=== PATIENT | male | born 1995 | race Caucasian/White ===

== ENCOUNTER 2016-03-19 12:15 | Emergency (ER) | payer OTHER, MEDICAID ==
[~2016-03-19] VITALS: Ht 176.5 cm; Wt 78.2 kg
[~2016-03-19 12:15] MED LIST: BENZ1TAB7 PO; FLUV150C2 PO; GABA-502 PO; GUAN1TAB PO; GUAN3TAB2 PO; HALO1TAB PO; KLO1T PO; TRAZ-115 PO
[2016-03-19 12:21] VITALS: BP 115/70; PULSE 99; RESP 16; O2SAT 93
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
[2016-03-19] MEDS ORDERED: diphenhydrAMINE 50 mg Capsule PO ONE (13:40)
[2016-03-19] MEDS ORDERED: diphenhydrAMINE 25 mg Capsule PO ONE (15:10)
[2016-03-19] MEDS ORDERED: HAL5 PO (17:14)
[2016-03-19 17:31] VITALS: BP 119/69; PULSE 89; RESP 16; O2SAT 98
== END 2016-03-19 17:31 | disposition home or self-care (01) ==
LOC: SED 12:15
DX: F91.8 Other conduct disorders (principal); R62.50 Unspecified lack of expected normal physiological development in childhood; F84.0 Autistic disorder; R45.1 Restlessness and agitation

== ENCOUNTER 2016-03-25 19:08 | Emergency (ER) | payer OTHER, MEDICAID ==
[~2016-03-25 19:08] MED LIST changes: +HAL5 PO
[2016-03-25] MEDS ORDERED: PARO20TA5 PO (19:19)
[2016-03-25] MEDS ORDERED: KLO2T PO (19:19)
[2016-03-25] MEDS ORDERED: Haloperidol 5 mg/mL Inj IM ONE (19:30)
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
[2016-03-25] MEDS ORDERED: oxyCODONE-Acetamin 10-325 mg Tablet PO ONE (19:35)
[2016-03-25 19:40] VITALS: BP 129/85; PULSE 94; RESP 18
[2016-03-25] MEDS ORDERED: LORazepam 2 mg Tablet PO ONE (19:55)
[2016-03-25] MEDS ORDERED: DIPH25CA6 PO (20:26)
[2016-03-25] MEDS ORDERED: NYST1000 PO (20:26)
[2016-03-25] MEDS ORDERED: TRAZ-118 PO (20:26)
[2016-03-25] MEDS ORDERED: LORA10CA PO (20:26)
[2016-03-25] MEDS ORDERED: MELA5TAB14 PO (20:26)
[2016-03-25] MEDS ORDERED: POLY17PO6 PO (20:26)
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
[2016-03-25] MEDS ORDERED: IBUP800T28 PO (22:07)
[2016-03-25 22:31] VITALS: BP 92/43; PULSE 83; RESP 16; O2SAT 97
== END 2016-03-25 22:33 | disposition home or self-care (01) ==
LOC: SED 19:08
DX: S00.83XA Contusion of other part of head, initial encounter (principal); Y04.0XXA Assault by unarmed brawl or fight, initial encounter; Y93.89 Activity, other specified; Y92.9 Unspecified place or not applicable; Y99.8 Other external cause status; F43.22 Adjustment disorder with anxiety; F84.0 Autistic disorder
CPT/HCPCS: 70486; 96372; 99284; J1630

== ENCOUNTER 2016-03-28 15:49 | Inpatient (IN) | payer OTHER, MEDICAID ==
[~2016-03-28] VITALS: Ht 172.7 cm; Wt 79.4 kg
[~2016-03-28 15:49] MED LIST changes: +DIPH25CA6 PO; -GUAN1TAB PO; -GUAN3TAB2 PO; -HAL5 PO; +IBUP800T28 PO; -KLO1T PO; +KLO2T PO; +LORA10CA PO; +MELA5TAB14 PO; +NYST1000 PO; +PARO20TA5 PO; +POLY17PO6 PO; -TRAZ-115 PO; +TRAZ-118 PO
[2016-03-28 16:31] VITALS: BP 115/70; PULSE 89; RESP 18; O2SAT 97
--- NOTE | 2016-03-28 17:47 | PCM.EDPN ---
ED Note Date of Service Mar 28, 2016 I personally saw this patient through the seclusion room door at approximately 1735. He is awake and alert tearful but conversant requesting a pillow. This was provided. He was placed in seclusion because of his past history with his violent behavior and was becoming quite agitated in the public area. Quinton Hart MD Mar 28, 2016 17:47
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
[2016-03-28] MEDS ORDERED: Haloperidol 5 mg/mL Inj IM ONE (18:40)
[2016-03-28 20:15] LABS: BASOPHILS % (AUTO) 0.4 % (0-3); EOSINOPHILS % (AUTO) 1.9 % (0-5); MONOCYTES % (AUTO) 11.7 % (4-12); Mean Corpuscular Hemoglobin 30.1 pg (27.0-35.0); Mean Corpuscular Volume 87.5 fL (81-100); NEUTROPHILS % (AUTO) 70.1 % (40-74); Platelet Count 196 bil/L (150-400)
[2016-03-29] MEDS ORDERED: Haloperidol 5 mg/mL Inj IM STA (01:12)
[2016-03-29] MEDS ORDERED: Haloperidol 5 mg/mL Inj IM ONE (03:15)
[2016-03-29 06:11] VITALS: BP 101/57; PULSE 81; RESP 14; O2SAT 94
[2016-03-29 10:04] VITALS: BP 123/83; PULSE 67; O2SAT 97
[2016-03-29] MEDS ORDERED: Magnesium Hydroxide 10 mL Oral Concentration PO PRN (12:00)
[2016-03-29] MEDS ORDERED: Alum-Mag Hydrox-Simeth 30 mL Suspension PO PRN (12:00)
[2016-03-29] MEDS ORDERED: Benzocaine-Menthol Lozenge 2/Pkg PO PRN (12:00)
[2016-03-29 12:55] VITALS: BP 112/74; PULSE 66; O2SAT 96
[2016-03-29] MEDS: PARoxetine 20 mg Tablet PO SCH ×2 (17:40→20:56)
[2016-03-29] MEDS: OXcarbazepine 300 mg Tablet PO SCH ×2 (17:45→20:56)
[2016-03-29 18:57] VITALS: BP 112/74; PULSE 66; RESP 14; O2SAT 96
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
--- NOTE | 2016-03-30 02:59 | NUR ---
Nursing Admit Patient arrival to unit at 1900 today with security via wheelchair. Pt is on 72 hour COOPER initiated at 0130 on 03/29/16. Patient is a 11-year-old male with history of intellectual disability, autism spectrum disorder, unspecified depressive disorder, and Tourette's syndrome. Pt unable to give much history of events leading up to this admission. Reported from ED that patient required seclusion and PRN medication to maintain safety for self and others. Reports of aggression towards staff and family. Reported medication change approximately one month earlier which mother reports coincides with increasing agitation by patient. Plan for medication adjustment for irritability with plan for discharge home.
--- NOTE | 2016-03-30 05:02 | NUR ---
Observations 1900 to 0700 Pt arrived on the floor at 19:00 and was not able to partake in the intake process. Pt slowly ate his meal in the Dr. Pt was walked to his room via wheelchair. Pt first appeared asleep at 21:15 and was observed every 15 minutes through the night as directed.
--- NOTE | 2016-03-30 05:37 | NUR ---
nursing, nights, 11-7 s/o- has appeared to sleep after 2114 during q 15 minute assessments. a- no apparent distress. p- monitor behavior/emotional state, quality, times and amount of sleep, use and effect of medication. suzanne
[2016-03-30] MEDS ORDERED: Haloperidol 5 mg/mL Inj ONE (08:25)
[2016-03-30] MEDS ORDERED: Haloperidol 5 mg/mL Inj IM PRN (09:35)
--- NOTE | 2016-03-30 10:18 | PCM.PNPSY ---
Subjective Date of Service Mar 30, 2016 Subjective The patient slept well overnight but became irritated after redirection for running on the unit and eventually required seclusion. The patient was banging so hard on the door that emergency medications were required to prevent injury. On assessment today, the patient mumbled his responses and when asked for clarification and stated, "Aren't you even listening?" Regarding all of the questions including suicidality and homicidality he stated, "I do not know." He was unable to say how long these episodes typically last and instead asked for a pillow. No side effect complaints or other medical issues. Sleep: 8.25 hours. Current Medications Current Medications Amantadine HCl 100 mg BID PO Last administered on 03/29/16 20:56; Admin Dose 100 MG; Start 03/29/16 at 12:00 Clonazepam 1 mg BID PO Last administered on 03/29/16 19:43; Admin Dose 1 MG; Start 03/29/16 at 20:30; Stop 03/29/16 at 20:30; Status DC Clonazepam 1 mg ONCE ONCE PO Last administered on 03/29/16 17:40; Admin Dose 1 MG; Start 03/29/16 at 16:05; Stop 03/29/16 at 16:13; Status DC Clonazepam 1 mg TID PRN PO Last administered on 03/29/16 15:41; Admin Dose 1 MG ; Start 03/29/16 at 12:00 Clonazepam 2 mg BID PO Last administered on 03/30/16 07:29; Admin Dose 2 MG; Start 03/29/16 at 20:30 Diphenhydramine HCl 25 mg ONCE ONCE IM Last administered on 03/28/16 19:55; Admin Dose 25 MG; Start 03/28/16 at 18:40; Stop 03/28/16 at 18:42; Status DC Fluvoxamine Maleate 300 mg DAILY PO Last administered on 03/29/16 17:40; Admin Dose 300 MG; Start 03/29/16 at 16:05 Guanfacine HCl 1 mg BID PO Last administered on 03/29/16 20:56; Admin Dose 1 MG ; Start 03/29/16 at 12:00 Haloperidol 5 mg BID PO Last administered on 03/29/16 20:55; Admin Dose 5 MG; Start 03/29/16 at 16:05 Haloperidol Lactate 5 mg ONCE ONCE IM Last administered on 03/28/16 19:55; Admin Dose 5 MG; Start 03/28/16 at 18:40; Stop 03/28/16 at 18:42; Status DC Haloperidol Lactate 5 mg ONCE STAT IM Last administered on 03/29/16 02:22; Admin Dose 5 MG; Start 03/29/16 at 01:12; Stop 03/29/16 at 01:14; Status DC Haloperidol Lactate 10 mg STAT ONCE IM Last administered on 03/29/16 03:58; Admin Dose 10 MG; Start 03/29/16 at 03:15; Stop 03/29/16 at 03:16; Status DC Haloperidol Lactate 10 mg STK-MED ONCE .ROUTE Last administered on 03/30/16 08: 38; Admin Dose 10 MG; Start 03/30/16 at 08:25; Stop 03/30/16 at 08:27; Status DC Lorazepam 1 mg ONCE ONCE IM Last administered on 03/29/16 02:22; Admin Dose 1 MG; Start 03/29/16 at 01:15; Stop 03/29/16 at 01:16; Status DC Lorazepam 2 mg ONCE ONCE IM Last administered on 03/28/16 19:55; Admin Dose 2 MG; Start 03/28/16 at 18:40; Stop 03/28/16 at 18:42; Status DC Lorazepam 2 mg STK-MED ONCE .ROUTE Last administered on 03/30/16 08:38; Admin Dose 2 MG; Start 03/30/16 at 08:26; Stop 03/30/16 at 08:28; Status DC Melatonin 5 mg HS PO Last administered on 03/29/16 17:52; Admin Dose 5 MG; Start 03/29/16 at 21:00 Oxcarbazepine 300 mg BID PO Last administered on 03/29/16 20:56; Admin Dose 300 MG; Start 03/29/16 at 16:05 Paroxetine HCl 20 mg BID PO Last administered on 03/29/16 20:56; Admin Dose 20 MG; Start 03/29/16 at 16:05 Trazodone HCl 100 mg HS PRN PO Last administered on 03/29/16 20:55; Admin Dose 100 MG; Start 03/29/16 at 16:10 Mental Status Exam Appearance: Disheveled Attitude: Guarded, Uncooperative, Hostile/Threatening Behavior: Other (aggressive) Affect: Blunted, Labile Mood: Irritable Thought Process/Associations: Other (poverty of speech) Speech Production: Paucity Speech Rate: Lags/Latency Speech Articulation: Other (dysarthric) Danger to Self/Suicidal Ideati: None ("I do not know ") Danger to Others: None ("I do not know") Delusions: Other (unable to assess) Hallucinations: Other (unable to assess) Consciousness: Other Orientation: Unable to assess Memory: Untestable Estimate Intellectual Function: Developmentally delayed (by history) Basis for IQ estimate: Word use/vocabulary, Educational history Attention/Concentration & Cogn: Impaired Insight: None Judgement: Poor Result Diagram: 03/28/16170103/28/161701 Mental Health Plan The patient is a 20-year-old male with a history of intellectual disability, autism spectrum disorder, depressive disorder, and Tourette's disorder. He presents with increasing agitation and irritability. The patient was recently started on lithium with haloperidol and his agitation, according to his mother, appears to coincide with the start of this medication. He may be exhibiting a delirium or agitation syndrome associated with a combination of haloperidol and lithium. The patient's mother is his legal guardian and we discussed options to address aggression and agitation in autism spectrum disorder. He is also receiving haloperidol and so starting on amantadine would address potential EPS as well as address impulsivity related to autism. The patient had previously been on guanfacine with good results, and so this was also discussed with the mother who approved of this plan. Today, prior to medications, the patient was initially doing well then became quite irritable in response to redirection. He received IM Haldol and Ativan due to severe agitation. We will need a second opinion medication override. Given his intellectual disabilities, once slightly more stabilized, he should be returned to his caregiver. [place] I Autism spectrum disorder with accompanying intellectual and language impairment. Depressive disorder, unspecified. Tourette's disorder. [place] II Intellectual disability, by history. [place] III Left eye contusion. [place]man IV Unknown. [place] V Global Assessment of Functioning 20-25. Medications Haloperidol 5 mg twice a day Guanfacine 1 mg twice daily Amantadine 100 mg twice daily Clonazepam 2 mg twice daily Clonazepam 1 mg tid prn anxiety or agitation Fluvoxamine 300 mg daily Paroxetine 20 mg twice daily Oxcarbazepine 300 mg twice daily Trazodone 100 mg at bedtime for insomnia Melatonin 5 mg at bedtime Treatments 1. The patient will be continued on his outpatient medications with the addition of haloperidol, quantity seen, and amantadine. [place] will not be restarted. 2. The patient is currently in seclusion and will remain there until able to maintain normative behavior for 1-2 hours. 3. We will need to follow up with outpatient provider regarding current medication changes. 4. We will need to follow up with patient's guardian regarding discharge. Per discussion patient not currently taking oxcarbazepine, will discontinue. 5. Estimated length of stay 1-2 days. Sonu Gilliam MD Mar 30, 2016 10:18
[2016-03-30] MEDS: PARoxetine 20 mg Tablet PO SCH ×2 (10:39→20:17)
--- NOTE | 2016-03-30 11:11 | NUR ---
Nursing Day Shift- Pt. was awake at the start of the day Shift. He was watching TV in the DR. Pt. was polite, childlike, and calm when staff introduced themselves. At 0740 Pt. Stated to staff..."Want to come see a surprise in my room? Come see, follow me." The pt. was animated and giggly. Pt. began running on his toes down the hallway. He was told gently that walking was allowed and running was not. Staff got to the Pt's room, and he said "Look...I turned all the lights on!!" Pt. and staff then walked back down the hallway toward the DR. The Pt. ran up behind a peer. He was again gently reminded to walk. Pt. then approached staff with a smile and stated. "I ran! What are you going to do about it? Staff attempted to redirect the subject, but Pt. continued to ask in an increasingly agitated and threatening tone. He yelled at a peer that was greeting him: "Get the F...away from me you old Bitch!!" Redirection was attempted again, then the option of going to his room to yell or quieting down. Pt. then verbally threatened to harm staff. A ha page was called and the Pt. was placed in seclusion at 0800. Orders were obtained, and a 1:1 was placed with full view of the Pt. The Pt. continued to yell and threaten staff. He gently hit at the window with his open palms and his forehead. PO medications were offered and refused. IM medications were ordered and given with a show of force, and resistance. Pt. began banging his head with force at 0919. A ha Page was called ant the Pt. was moved to restraints at 0925. 1:1 continued at the bedside. Q 15 minute circulation checks performed. See MAR, and restraint and seclusion records. Addendum: 03/30/16 at 1407 by SANJIV NEGRO RN Clarification: IM medications given at 0838. evaluated the Pt. at 0845. At 1045 Pt. agreed to take his scheduled AM medications. One arm was released at that time. Pt drank 300 cc with meds. At 1119 food was offered. The L leg was released. Pt. eat well. He continued to be labile with unprovoked bouts of yelling and threatening toward staff. At 1210 Pt. lashed out at staff, threw his pillow and blanket, urinated on the floor after being offered the urinal, then began banging his arm against the bed. 4 point restraints were reapplied. Pt. continued to swear and threaten staff. He slowly calmed. At 1340 Pt. agreed to maintain calm, nonaggressive behavior. The restraints were removed. Pt's mother visiting and Pt. behaving politely at this time.
--- NOTE | 2016-03-30 17:48 | NUR ---
Bridal Sales Consultant/Counselor: S: "I can do whatever I want to do!" O: Patient slept 8.25 hours last night as per staff. He responded "I don't know" to all questions asked by staff. A: Patient is uncooperative, disheveled, guarded, hostile, threatening, aggressive, blunted affect, labile, irritable, no insight, poor judgment. P: Follow care plan, coordinate with out-patient providers, monitor behavior.
--- NOTE | 2016-03-30 18:46 | NUR ---
[facility] Day Shift Pt unable to maintain behavior throughout most of the shift. Pt displays inappropriate language, volume, and aggressiveness in the dining room before breakfast, at which point was asked to return to his room. Pt complied following show of force/code eller. Pt continues to require near-constant attention to monitor/contain aggressive behavior. Pt appears better able to maintain behavior in the late afternoon/evening. Pt unable to attend community meeting or group activities throughout the shift. Pt given meals in his room. Pt appears to have eaten approx 100% of all meals.
--- NOTE | 2016-03-30 22:03 | NUR ---
NURSING NOTE [id number] Mood= "I'm... ballsy" *laughs* Affect= childlike, blunted Behavior= Pt. has maintained behavioral control for the duration of the shift. He was in open door seclusion at start of shift with his mother visiting him there. After she left, this advertising writer asked the pt. if he could remain behavioral control in his own room and he agreed that he would, so pt. walked with this advertising writer and another RN back to his room. Pt. placed on 1:1 with a sitter outside his room. He spent much of the afternoon pacing, singing and talking to himself in his room. He ate his dinner in the multipurpose room with his grandfather, mother, and sister who all visited with him. After their visit, he happily watched TV for a brief period before asking if he could go back to his room. He was med compliant. At time of writing (22:20) he is resting in bed w/eyes closed. Thought processes= disorganized, unable to clearly answer this advertising writer's questions about auditory and visual hallucinations Addendum: 03/30/16 at 2219 by LISA SR RN PRN Trazodone 100 mg @ HS
[2016-03-31] MEDS: PARoxetine 20 mg Tablet PO SCH (04:58)
--- NOTE | 2016-03-31 05:39 | NUR ---
Pt visited family. Out on unit watching TV some. Asleep at 2100-500. 1:1 observation. Pt observed every 15 minutes as ordered.
--- NOTE | 2016-03-31 05:39 | NUR ---
Nursing Noc Pt pleasant and cooperative this shift. Noted to have visitors this evening (grand parents) and hugging each of them prior to end of visiting time. Pt directable to room or snacks. Not able to participate with group, but was able to maintain behavioral control in [place] while watching TV or having snacks. Continuing to monitor Q15 minutes for safety, mood, behavior, emotional state and sleep times. CP
--- NOTE | 2016-03-31 15:01 | PCM.DIMED ---
Discharge Instructions Date of Service Mar 31, 2016 Dates of Hospitalization Mar 29, 2016 at 11:59 Discharge Diagnosis Discharge Diagnosis [place] I Autism spectrum disorder with accompanying intellectual and language impairment. Depressive disorder, unspecified. Tourette's disorder, by history. [place] II Intellectual disability, by history. [place] III Left eye contusion. [place] IV Unknown. [place] V Global Assessment of Functioning 40. Test Results Laboratory Tests 72 Hours Test 03/28/16 17:02 White Blood Count 6.7th/mm3 (3.8-10.1) Red Blood Count 5.38mil/mm3 (4.40-5.80) Hemoglobin 16.2g/dL (13.8-17.2) Hematocrit 47.1% (41.0-50.0) Mean Corpuscular Volume 87.5fL (81-100) Mean Corpuscular Hemoglobin 30.1pg (27.0-35.0) Mean Corpuscular Hemoglobin Concent 34.4% (32.0-37.0) Red Cell Distribution Width 13.4% (12.3-15.4) Platelet Count 196bil/L (150-400) Neutrophils (%) (Auto) 70.1% (40-74) Lymphocytes (%) (Auto) 15.8% (14-46) Monocytes (%) (Auto) 11.7% (4-12) Eosinophils (%) (Auto) 1.9% (0-5) Basophils (%) (Auto) 0.4% (0-3) Hold Purple Top Tube Received (Received) Hold Blue Top Tube Received (Received) Sodium Level 141mEq/L (134-144) Potassium Level 4.4mEq/L (3.5-5.2) Chloride Level 99mEq/L (97-108) Carbon Dioxide Level 32mmol/L (18-29) Blood Urea Nitrogen 9mg/dL (6-20) Creatinine 0.99mg/dL (0.76-1.27) Estimat Glomerular Filtration Rate 104mL/min (>59) Glucose Level 80mg/dL (60-99) Calcium Level 9.7mg/dL (8.5-10.1) Total Bilirubin 0.2mg/dL (0.0-1.2) Aspartate Amino Transf (AST/SGOT) 35U/L (0-50) Alanine Aminotransferase (ALT/SGPT) 59U/L (0-44) Alkaline Phosphatase 94U/L (25-150) Total Protein 7.0g/dL (6.4-8.4) Albumin 4.4g/dL (3.4-5.0) Thyroid Stimulating Hormone (TSH) 2.950uIU/mL (0.450-4.500) Hold [place] Top Tube Received (Received) Hold [place] Top Tube Received (Received) [place] Level 0.7mEq/L (0.5-1.5) Alcohol, Quantitative < 10mg/dL (0-10) Diet No restrictions Activity No restrictions Patient Instructions Should you have any thoughts of harming yourself or others, please call the crisis line, your provider, 911, or go to the nearest Emergency Department. Do not change or discontinue your medications without discussing with your provider. You have been given a prescription for 14 days supply of your new medication Follow-up plan Provider KASIE Gonzalez on 04/04/16 at 3:00pm [address] [place] [id number] [place] Operator Alondra Keen on 04/12/16 at 1:00pm [address] [place] [id number] Sonu Gilliam MD Mar 31, 2016 15:01
[2016-03-31] MEDS ORDERED: AMN100C PO (15:07)
[2016-03-31] MEDS ORDERED: GUAN1TAB PO (15:07)
[2016-03-31] MEDS ORDERED: KLO1T PO (15:07)
[2016-03-31] MEDS ORDERED: KLO2T PO (15:07)
[2016-03-31] MEDS ORDERED: HAL5 PO (15:07)
--- NOTE | 2016-03-31 17:50 | NUR ---
Emery Grinder/Counselor: S/O: Patient slept 8+ hours last night as per staff. He denies S/I and H/I. He also denies auditory and visual hallucinations. Depression is 0/10 and anxiety is "mild"/10. Out-patient appointments: KASIE Gonzalez, [facility] prescriber, 04/04/16 at 3:00pm and Bill Keen, [facility] clinician, 04/12/16 at 1:00pm. A: Patient is cooperative, disheveled, guarded, poor insight, poor judgment. P: Follow care plan, coordinate with out-patient providers, monitor behavior.
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
--- NOTE | 2016-03-31 19:13 | NUR ---
Nursing Discharge Note: Patient's guardian/mother cooperative with discharge process. Acknowledges understanding of d/c instructions and has a copy with them upon leaving unit at 1905. Belongings accounted for and with patient. Prescriptions faxed to patients pharmacy. Hard copies with parents. Patient denies harmful thoughts and hallucinations at this time. Has had a good appetite. Directable.
== END 2016-03-31 19:05 | disposition home or self-care (01) | DRG 884 ==
LOC: SED 15:49 → OFED 03-29 11:59 → MHC 03-29 15:34
PROVIDERS: ADMIT Psychiatry & Neurology Psychiatry; ATTEND Psychiatry & Neurology Psychiatry
DX: F84.0 Autistic disorder (principal); F79 Unspecified intellectual disabilities; F95.2 Tourette's disorder; F32.9 Major depressive disorder, single episode, unspecified

== ENCOUNTER 2016-06-14 18:17 | Emergency (ER) | payer OTHER, MEDICAID ==
[~2016-06-14] VITALS: Ht 175.3 cm; Wt 76.8 kg
[~2016-06-14 18:17] MED LIST changes: +AMN100C PO; -BENZ1TAB7 PO; -GABA-502 PO; +GUAN1TAB PO; +HAL5 PO; -HALO1TAB PO; +KLO1T PO
[2016-06-14 18:23] VITALS: BP 112/66; PULSE 71; RESP 18; O2SAT 100
[2016-06-14 18:59] LABS: BASOPHILS % (AUTO) 0.3 % (0-3); EOSINOPHILS % (AUTO) 0.3 % (0-5); MONOCYTES % (AUTO) 7.1 % (4-12); Mean Corpuscular Hemoglobin 29.9 pg (27.0-35.0); NEUTROPHILS % (AUTO) 67.9 % (40-74); Platelet Count 206 bil/L (150-400)
[2016-06-14 19:14] VITALS: BP 169/63; PULSE 82; RESP 16; O2SAT 95
[2016-06-14 19:22] LABS: Magnesium 2.3 mg/dL (1.6-2.6)
[2016-06-14] MEDS ORDERED: 0.9% Sodium Chloride 1,000 ML IV ONE (19:30)
[2016-06-14] MEDS ORDERED: Ondansetron 2 mg/mL 2 mL Inj IVPUSH ONE (19:30)
[2016-06-14] MEDS ORDERED: HYDROmorphone 0.5 mg/0.5 mL iSecure Syringe IVPUSH PRN (19:30)
--- NOTE | 2016-06-14 19:32 | ED.REPORT ---
HPI-Abd Pain M Under 40 Date of Service Jun 14, 2016 ED Provider: Jasiel Maria MD Patient is a 20 year old male with a history of autism spectrum disorder with accompanying intellectual and language impairment who presents to the ED from Urgent Care, accompanied by his parents, due to RLQ that began this morning. The physician at Urgent Care was concerned about possible appendicitis. The patient last had a bowel movement this morning and has not been constipated or had diarrhea. His parents deny a fever, nausea, or vomiting. The patient did complain of dysuria earlier today, but urinalysis at Urgent Care was negative. Patient is an poor historian and is able to provide minimal history. Nursing Notes Stated Complaint: RIGHT SIDE PAIN SENT FROM Chief Complaint: Male Abdominal Pain Nursing Notes Reviewed: Yes Allergies: Coded Allergies: No Known Allergies (Verified Allergy, Unknown, 03/25/16) Scheduled Amantadine (Amantadine) 100 Mg Cap 100 MG PO BID Clonazepam (Clonazepam) 2 Mg Tablet 2 MG PO BID Fluvoxamine Maleate ER (Fluvoxamine Maleate ER) 150 Mg Capsule 300 MG PO DAILY Guanfacine (Guanfacine) 1 Mg Tablet 1 MG PO BID Haloperidol (Haloperidol) 5 Mg Tablet 5 MG PO BID Loratadine (Claritin) 10 Mg Capsule 10 MG PO DAILY Melatonin (Melatonin) 5 Mg Tablet 5 MG PO HS Nystatin (Nystatin) 100,000 Unit/1 Ml Oral.susp 100,000 UNIT PO TID Paroxetine (Paroxetine) 20 Mg Tablet 20 MG PO BID Polyethylene Glycol 3350 (Miralax) 17 Gm Powd.pack 17 GM PO DAILY Trazodone (Trazodone) 100 Mg Tablet 100-200 MG PO HS Scheduled PRN Clonazepam (Clonazepam) 1 Mg Tablet 1 MG PO TID PRN PRN For Anxiety or Agitation Ibuprofen (Ibuprofen) 800 Mg Tablet 800 MG PO TID PRN PRN For Pain diphenhydrAMINE HCl (Benadryl) 25 Mg Capsule 50 MG PO BID PRN PRN General Time Seen by MD: 19:11 Chief Complaint Abdominal pain Hx Obtained From: Patient Unable to Obtain Hx: Mental status (limited) Arrived By: Walk-in Sudden in Onset?: No Onset Occurred: 9 - 12 hours ago Symptom Duration: Since onset Location: : RLQ Quality: Painful Pertinent Negative: Pt denies other symptoms Recent Healthcare: Recent doctor visit Similar Sx Previous: No Past Medical History Past Medical History Autism spectrum disorder with accompanying intellectual and language impairment. Depression Tourette's Syndome Detained in June 2015 for agitation Past Surgical History None reported Smoking History Never Smoker Social History Alcohol Use: Denies alcohol use Drug Use: Denies drug use Other Social History: Good social support, Lives with parents, Local resident Ambulatory Status Independent Review of Systems Constitutional: Denies: Chills, Fever GI: Reports: Abdominal pain, Denies: Constipation, Diarrhea, Nausea, Vomiting Male: Reports Dysuria Complete sys rev & neg: except as marked. Physical Exam Initial Vital Signs Vital Signs (First) Date Time Temp Pulse Resp B/P Pulse Ox O2 Delivery O2 Flow Rate FiO2 06/14/16 18:23 37.1 71 18 112/66 100 Room Air Initial VS: Reviewed Skin: Warm, Dry, No cyanosis Neurologic: Alert, Oriented, Nonfocal Psychiatric: Mood/affect normal, Behavior normal, Normal thought content General/Constitutional: Awake, Alert, No acute distress Respiratory / Chest: Breath sounds NL, Breath sounds = bilat, No respiratory distress, No rales, No rhonchi, No wheezing Cardiovascular: Heart rate NL, Regular rhythm, Heart sounds NL, No gallop, No murmurs, No rubs Abdomen: Soft, Non-tender, No guarding, No rebound, No distention Tenderness/Guarding/Rebound: Negative: Rigid to palpation tolerates firm palpation all four quadrants Back: Painless range of motion Head / Eyes: Atraumatic, Normocephalic, PERRL, EOMI ENT: Airway patent Mouth: Positive: Mucous membranes dry (mild) Male Genitourinary: Inspection NL, Penis NL (circumcised), Testes NL (no torsion), Cremasteric reflex NL, Epididymis NL (no signs of epididymitis), No lesions or rash Upper Extremity / MS: Atraumatic, No swelling, Non-tender, No deformity, No edema Lower Extremity / Pelvis / MS: Atraumatic, No swelling, Non-tender, No deformity, No edema Interpretation & Diagnostics Lab Results Interpretation Result Diagram: 06/14/16184906/14/16 185 Test 06/14/16 18:50 White Blood Count 6.8th/mm3 (3.8-10.1) Red Blood Count 5.59mil/mm3 (4.40-5.80) Hemoglobin 16.7g/dL (13.8-17.2) Hematocrit 50.3% (41.0-50.0) Mean Corpuscular Volume 90.0fL (81-100) Mean Corpuscular Hemoglobin 29.9pg (27.0-35.0) Mean Corpuscular Hemoglobin Concent 33.2% (32.0-37.0) Red Cell Distribution Width 13.5% (12.3-15.4) Platelet Count 206bil/L (150-400) Neutrophils (%) (Auto) 67.9% (40-74) Lymphocytes (%) (Auto) 24.3% (14-46) Monocytes (%) (Auto) 7.1% (4-12) Eosinophils (%) (Auto) 0.3% (0-5) Basophils (%) (Auto) 0.3% (0-3) Sodium Level 140mEq/L (134-144) Potassium Level 4.3mEq/L (3.5-5.2) Chloride Level 98mEq/L (97-108) Carbon Dioxide Level 27mmol/L (18-29) Blood Urea Nitrogen 12mg/dL (6-20) Creatinine 0.98mg/dL (0.76-1.27) Estimat Glomerular Filtration Rate 105mL/min (>59) Glucose Level 93mg/dL (60-99) Calcium Level 9.9mg/dL (8.5-10.1) Magnesium Level 2.3mg/dL (1.6-2.6) Total Bilirubin 0.3mg/dL (0.0-1.2) Aspartate Amino Transf (AST/SGOT) 26U/L (0-50) Alanine Aminotransferase (ALT/SGPT) 51U/L (0-44) Alkaline Phosphatase 98U/L (25-150) Total Protein 7.5g/dL (6.4-8.4) Albumin 4.7g/dL (3.4-5.0) Lipase 30U/L (13-60) Hold Page Top Tube Received (Received) CT Abd / Pelvis Interpretation IMPRESSION: 1. No evidence of appendicitis. 2. Moderate left hydroureteronephrosis with a transition point at the ureterovesical junction but no discrete shaowing stone identified. The findings may reflect a stricture or aganglionosis in the setting of a megaureter. 3. Hepatic steatosis. Dictated by: Efra Jimenez M.D. on 06/14/2016 at 21:22 Approved by: Efra Jimenez M.D. on 06/14/2016 at 21:26 Interpretation / Wet Read by: Interpret - Radiologist Re-Eval/Medical Decision Med Decision/Clinical Course Patient is a 20 year old male with a history of autism spectrum disorder with accompanying intellectual and language impairment who presents to the ED from Urgent Care, accompanied by his parents, due to RLQ that began this morning. The physician at Urgent Care was concerned about possible appendicitis. The patient last had a bowel movement this morning and has not been constipated or had diarrhea. His parents deny a fever, nausea, or vomiting. The patient did complain of dysuria earlier today, but urinalysis at Urgent Care was negative. Patient is an poor historian and is able to provide minimal history due to his underlying cognitive impairment. Here in the emergency department he is afebrile with stable vital signs and relatively benign abdominal examination. CBC is unremarkable CMP is unremarkable. Good renal function. Urinalysis at Urgent Care was negative for a UTI. CT scan of the abdomen and pelvis was obtained as below: 1. No evidence of appendicitis. 2. Moderate left hydroureteronephrosis with a transition point at the ureterovesical junction but no discrete shaowing stone identified. The findings may reflect a stricture or aganglionosis in the setting of a megaureter 5. Hepatic steatosis. Serial abdominal examinations remained benign. There is no evidence suggestive of acute surgical intra-abdominal process, small bowel obstruction or peritonitis. Testicular examination revealed no evidence of torsion or epididymitis. There is no evidence of hernia. Positive patient's abdominal pain remains unclear to tell at this time it seems to have completely resolved and imaging/laboratory studies are reassuring. Follow-up and return precautions were reviewed in detail with the patient's parents who verbalize understanding and agreement with the plan. He was discharged home in good condition. Source of Hx: Old records Re-Evaluation/Progress : Time of Eval: 21:45 Patient Status: Condition improved Re-Evaluation/Progress Note: CT scan was negative and the patient appears improved. No acute abnormalities on labs. Patient understands and agrees with the plan to be discharged home. Discharge instructions and follow-up discussed. All questions were addressed. Return to the ED warnings given. Counseled Regarding: Diagnosis, Lab results, Need for follow-up, When/why to return to ED Patient Discharge & Departure Primary Impression: Abdominal pain Abdominal location: right lower quadrant Qualified Code: R10.31 - Right lower quadrant pain Additional Impressions: Right lower quadrant pain Autism disorder Disposition: Home Discharge Condition All VS Reviewed: Yes Condition: Stable Patient Instructions: Acute Abdominal Pain (ED) Additional Instructions: Thank you for seeking care at the emergency room. It is difficult for us to make definitive diagnoses in the ED but we believe that he is experiencing abdominal pain. It is unclear what is causing this abdominal discomfort. Our primary goal today in the ED was to evaluate him for any life-threatening conditions. His evaluation was reassuring. He should follow-up with his primary doctor in the next week. There were some abnormalities of his ureter that were seen on the CT scan of the Abdomen. He should follow-up on this finding with Urology. You should return to the ED immediately if he develop fevers, vomiting, cough, shortness of breath, chest pain, lightheadedness, weakness or any other concerning signs or symptoms. Thank you for letting us partake in his care today. Referrals: Joss Mancuso MD (PCP) Lisa Nguyễn MD Attestation Portions of this note were transcribed by Tammy Sparks. I, Dr. Maria personally performed the history, physical exam and medical decision-making; I reviewed and confirmed the accuracy of the information in the transcribed note. Signed by: Tori Giordano, 06/14/2016 [id number] copies to: Joss Mancuso MD; Lisa Nguyễn MD, Beck O MD Jun 14, 2016 19:32 Tammy Sparks Jun 14, 2016 20:00
--- NOTE | 2016-06-14 21:28 | DRSVH ---
PROCEDURE: CT ABDOMEN AND PELVIS WITH CONTRAST ([id number]) INDICATIONS: Right lower quadrant pain TECHNIQUE: After the administration of oral and intravenous contrast, 5 mm thick sections acquired from the diap hragms to the symphysis. 5 mm thick coronal and sagittal reformats were performed. For radiation do se reduction, the following was used: automated exposure control, adjustment of mA and/or kV accordi ng to patient size. COMPARISON: None. FINDINGS: Image quality: Excellent. ABDOMEN: Lung bases: Lung bases are clear. Heart size is normal. Solid organs: There is hypoattenuation of the liver consistent with fatty infiltration. Biliary syst em is non-dilated. Pancreas enhances normally. No adrenal nodules. There is moderate left hydroure teronephrosis with a transition in the region of the ureterovesicular junction. No obstructing stone visualized. No right hydronephrosis. Peritoneum and bowel: Stomach, small bowel, and colon loops are normal in caliber and wall thickness . The appendix is normal in appearance. No free fluid or air. Nodes and vessels: No retroperitoneal or mesenteric adenopathy. Aorta and inferior vena cava are no rmal in caliber. Miscellaneous: No ventral hernias. PELVIS: Genitourinary: Bladder wall thickness is normal. Miscellaneous: No inguinal hernias or adenopathy. Bones: No suspicious bony lesions. No vertebral body compression fractures. IMPRESSION: 1. No evidence of appendicitis. 2. Moderate left hydroureteronephrosis with a transition point at the ureterovesical junction but no discrete shaowing stone identified. The findings may reflect a stricture or aganglionosis in the se tting of a megaureter. 5. Hepatic steatosis. Dictated by: Efra Jimenez M.D. on 06/14/2016 at 21:22 Approved by: Efra Jimenez M.D. on 06/14/2016 at 21:26
== END 2016-06-14 22:14 | disposition home or self-care (01) ==
LOC: SED 18:17
DX: R10.31 Right lower quadrant pain (principal); F84.0 Autistic disorder
CPT/HCPCS: 36415; 74177; 80053; 83690; 83735; 85025; 96361; 96374; 96375; 99285; J1170; J2405; J7030; Q9967

== ENCOUNTER 2016-07-03 21:09 | Inpatient (IN) | payer OTHER, MEDICAID ==
[~2016-07-03] VITALS: Ht 175.3 cm; Wt 77.3 kg
[2016-07-03 21:16] VITALS: BP 144/99; PULSE 121; RESP 17; O2SAT 97
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
[2016-07-03] MEDS ORDERED: Haloperidol 5 mg/mL Inj IM ONE (21:35)
[2016-07-03 21:47] LABS: BASOPHILS % (AUTO) 0.3 % (0-3); EOSINOPHILS % (AUTO) 0.8 % (0-5); MONOCYTES % (AUTO) 7.2 % (4-12); Mean Corpuscular Hemoglobin 30.5 pg (27.0-35.0); Mean Corpuscular Volume 87.7 fL (81-100); NEUTROPHILS % (AUTO) 74.3 % (40-74); Platelet Count 211 bil/L (150-400)
[2016-07-03 23:10] VITALS: BP 125/66; PULSE 77; RESP 17; O2SAT 97
[2016-07-03 23:30] VITALS: BP 128/81; PULSE 115; RESP 24; O2SAT 97
[2016-07-03] MEDS ORDERED: KLO1T PO (23:52)
[2016-07-03] MEDS ORDERED: FLUV150C2 PO (23:52)
[2016-07-03] MEDS ORDERED: HAL5 PO ×2 (23:52)
[2016-07-04 03:30] VITALS: BP 114/66; PULSE 62; RESP 14; O2SAT 99
[2016-07-04 06:28] VITALS: BP 117/66; PULSE 56; RESP 14; O2SAT 97
[2016-07-04] MEDS ORDERED: LORazepam 2 mg Tablet PO ONE (08:35)
[2016-07-04] MEDS ORDERED: Haloperidol 5 mg/mL Inj IM ONE (08:45)
[2016-07-04] MEDS ORDERED: OLANZapine Zydis ODT 5 mg Tablet PO ONE ×2 (10:35→10:50)
[2016-07-05 03:09] VITALS: BP 95/56; PULSE 48; RESP 14; O2SAT 98
[2016-07-05 06:36] VITALS: BP 131/68; PULSE 69; RESP 15; O2SAT 100
[2016-07-05] MEDS ORDERED: PARoxetine 20 mg Tablet PO ONE (09:55)
[2016-07-05] MEDS ORDERED: chlorproMAZINE 25 mg/mL Inj IM STA (10:19)
[2016-07-05] MEDS ORDERED: chlorproMAZINE 25 mg/mL Inj IM ONE ×2 (15:50→16:00)
[2016-07-05] MEDS ORDERED: chlorproMAZINE 25 mg/mL Inj IM PRN (16:00)
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
[2016-07-05] MEDS ORDERED: TRAZ-118 PO (17:45)
[2016-07-05] MEDS ORDERED: CHOL500050 PO (17:45)
[2016-07-05] MEDS: chlorproMAZINE 25 mg/mL Inj IM PRN (18:26)
--- NOTE | 2016-07-06 03:39 | NUR ---
Nursing Noc Pt in seclusion upon start of shift r/t danger to others and inability to control behavior and aggression. 1:1 sitter in use for safety. Pt remains unable to contract for safety this shift. Pt mentation appears to be equal to approximately a five year old. Appears to follow instruction for reward but quickly regresses to yelling out, swearing, and behaving in a unpredictable manner. Pt calms quickly when stimuli in interaction by staff is stopped. Pt presents calm and resting until interaction with staff. Continuing to monitor 1;1 for safety, monitoring mood, behavior, emotional state and medications. [facility] Addendum: 07/06/16 at 0643 by SERVANDO VO RN 0615 Pt presents more goal directed and less emotionally labile. Up to use bathroom and then back to bed. Medicated with PRN at this time and discussed plan of the day to take shower after breakfast. Pt requested not to take shower because he had one yesterday. Informed pt that he has had hard day and shower will make him much more comfortable to have a great day. Pt accepted conversation without angry outburst or inappropriate behavior.
[2016-07-06] MEDS: Polyethylene Glycol (PEG) 17 Gm Powder PO SCH (08:30)
[2016-07-06 09:35] VITALS: BP 130/67; PULSE 79; RESP 16
--- NOTE | 2016-07-06 09:58 | NUR ---
Nursing: Seclusion. Pt in seclusion at start of shift r/t danger to others and inability to control behavior and aggression. Has 1:1 observation staff with locked door in seclusion are. Pt slept through latter part of night. 0800: On awakening was able eat breakfast. Unable to contract for safety on open unit. 0900: Pt debriefed that he needs to be able to follow directions reliably before being on the open unit. Abner made a "finger" gesture toward keno writer / runner. 924: With security staff present, door opened to take vital signs on pt, administer meds and assess. Pt initially swore 'Kiss my ass", and stated he wouldn't take meds but on seeing security staff and being told that he would need to have scheduled med by 'shot" if he didn't take the med by mouth, he took the Thorazine po. Offered Motrin 400 mg prn and took that. Stated his left leg hurt. 1000 assessment: Remains Unpredictable. Recommend Continuing to monitor in seclusion 1:1 for safety, monitoring mood, behavior, emotional state and medications. 1015 Seclusion is continued. Addendum: 07/06/16 at 1517 by DEANA WILLIS RN Pt has been alert. Relatively cooperative, directable in taking medication, signing forms, using bathroom appropriately. Wants to watch TV. Mother called asking whether she could visit. Told mom to call before visiting this evening. Unit very high stimulating and chaotic for Derrick if her were to come out of seclusion. At 1415, seclusion order was renewed.
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
--- NOTE | 2016-07-06 19:06 | NUR ---
Observations 0900 - 2100 Pt was in seclusion when shift started and had 1:1 for behavior. Pt was moved to 230. Pt speech and eye contact was ok, but he did swear at staff on a couple occasions. Pt requires some staff redirection at times. Pt is pleasant and friendly upon approach. Pt was social with peers and staff. Pt is polite and cooperative for the most part but he did have a couple outbursts. Pt was observed every 15 minutes and had a 1:1 at all times throughout the shift as ordered. Pt is currently visiting with family and it appears to be going well.
--- NOTE | 2016-07-06 23:32 | NUR ---
NURSING NOTE [id number] 15:00-- Pt. in seclusion at start of shift. Pt. lying on mattress, requesting to watch TV. Pt. cursing off and on. Did not respond when this documentation writer asked if he knew why he was in seclusion. Pt. was instructed as to expected behaviors that would warrant opening door and the goals we were working toward. Pt. pulled blanket over himself and rolled over in bed when told of expectations. 17:00-- Pt. lying on mattress, requesting to be released from seclusion. Pt. still intermittently swearing in conversation w/this documentation writer but not in a belligerent way. Identified to this documentation writer @ 17:30 the behaviors that caused him to be secluded: "I was kicking and yelling" and agreed to not do those behaviors and any other violent or disruptive behaviors should he be released from seclusion. Agreed to take PRN medications and eat his dinner in seclusion and then trial release from seclusion and into his own room. PRN Thorazine 100 mg given @ 17:12. 18:14--Seclusion discontinued, pt. debriefed, pt. agreed to go to his room w/1:1 watching him. 18:27-- Pt. given PRN Thorazine 100 mg 19:00-- pt's parents visited, pt. maintained behavioral control during this time and was smiling and calm during the duration of the visit 20:10-- pt's behavior began to escalate in his room. Pt. banging on the zimmerman of his room, swearing at staff, flipping off staff, unable to maintain behavioral control. Pt. escorted to seclusion room and seclusion initiated at 20:20. Order obtained from Doctor Manrique.
--- NOTE | 2016-07-07 04:45 | NUR ---
Nursing Noc Pt remains comfortable in seclusion with 1:1 sitter at bedside. Pt able to request needs when awake but mostly resting quietly. Pt noted to de-escalate well when in seclusion . Resistant to staff explanation of behavioral expectations, but agrees to request end of seclusion when he is ready Continuing to monitor mood behavior and emotional state. BHCP
[2016-07-07] MEDS: Polyethylene Glycol (PEG) 17 Gm Powder PO SCH (08:39)
--- NOTE | 2016-07-07 08:45 | NUR ---
Nursing Day Shift S: "I'll drink it with the orange juice." O: Patient took his Miralax this AM with orange juice per his request. Med compliant. Approachable. Calm for the most part. A: No agitation. P: CPOC. Monitor mood and behavior.
--- NOTE | 2016-07-07 10:45 | NUR ---
Nursing Seclusion Note: Patient continues to cooperate and stay calm. Engages appropriately with staff. Will attend court hearing soon. Plan is to have open door with 1:1 staffing for patient protection due to unpredictable behavior. Addendum: 07/07/16 at 1245 by JESUS KOHLI RN Patient received a [address] Open door through lunch with patient calm and cooperative. Moved patient to his room 230 after he was finished eating lunch. 1:1 continues due to unpredictable behavior. Will continue to monitor.
--- NOTE | 2016-07-07 14:14 | PCM.PNPSY ---
Subjective Date of Service July 07, 2016 Subjective I spent 30 minutes both reviewing his treatment plan and providing supportive and educational psychotherapy. I spent more than 50% of the time counseling the patient. I attempted to review the treatment plan with the patient and discuss options available including the potential risks, benefits and side effects however the patient's cognitive status made this limited. Derrick reports "I want to watch TV". The Staff reports that he had been in seclusion all night for aggressive acting out threats and threats. For the past 8 hours he has been pleasant and cooperative and easily redirected. Although he is quite Active he is also now participating well in one-to-one unit and group activities. He slept 5 hours. He denies medication side effects. Patient was not able to identify his medications or what they were used to treat. Current Medications Current Medications Chlorpromazine 100 mg BID PO Last administered on 07/06/16 08:30; Admin Dose 100 MG; Start 07/05/16 at 20:30; Stop 07/06/16 at 20:43; Status DC Chlorpromazine 100 mg BID PO Last administered on 07/07/16 08:39; Admin Dose 100 MG; Start 07/06/16 at 20:45 Chlorpromazine 100 mg ONCE PRN PO Last administered on 07/05/16 15:54; Admin Dose 100 MG; Start 07/05/16 at 16:00; Stop 07/05/16 at 17:01; Status DC Chlorpromazine 100 mg Q1H PRN PO Last administered on 07/06/16 12:33; Admin Dose 100 MG; Start 07/05/16 at 18:50; Stop 07/06/16 at 16:48; Status DC Chlorpromazine 100 mg Q1H PRN PO Last administered on 07/06/16 18:27; Admin Dose 100 MG; Start 07/06/16 at 16:48; Stop 07/06/16 at 20:44; Status DC Chlorpromazine HCl 100 mg Q4H PRN IM Last administered on 07/05/16 18:26; Admin Dose 100 MG; Start 07/05/16 at 16:00 Ibuprofen 800 mg TID PRN PO Last administered on 07/07/16 11:32; Admin Dose 800 MG; Start 5/10/17 at 15:55 Melatonin 5 mg HS PO Last administered on 07/06/16 20:30; Admin Dose 5 MG; Start 07/05/16 at 21:00 Polyethylene Glycol 17 gm DAILY PO Last administered on 07/07/16 08:39; Admin Dose 17 GM; Start 07/06/16 at 08:30 Mental Status Exam Appearance: Disheveled Attitude: Cooperative, Guarded Behavior: Distractible Affect: Well Modulated/Appropriate Mood: Euthymic Thought Process/Associations: Tangential Speech Production: Normal Speech Rate: Normal Speech Articulation: Normal Thought Content: Autistic Danger to Self/Suicidal Ideati: None Danger to Others: None Consciousness: Alert Orientation: Person, Situation Memory: Grossly Intact, Untestable Estimate Intellectual Function: Developmentally delayed Basis for IQ estimate: Awareness current events, Word use/vocabulary, Educational history Attention/Concentration & Cogn: Impaired Insight: Limited Judgement: Limited Result Diagram: 07/03/16213407/03/162134 Mental Health Plan 20-year-old male with history of autism spectrum disorder, intellectual disability, unspecified depressive order, Tourette's syndrome, and multiple prior detainments for aggressive behavior most recently 03/29/2016. He presents with increasing aggressive and combative behaviors at home and with EMS. After similar episode potentially related to medication changes in March 2016 patient was discharged home on a medication regimen of clonazepam, fluvoxamine maleate, and Haldol which he has been relatively stable on. He does not appear to be responding to internal stimuli. However, the intensity and the change from baseline thoughts and behaviors was so extreme that I believed a psychotic condition had been triggered. He is no longer responding to staff with vulgar gestures nor responding unpredictably (suddenly strike out at grandparents, nurses, and security staff). His insight and judgement are severely impaired. His impulse control is markedly improved over the past 24 hours. [place] Town[place] I Autism spectrum disorder with accompanying intellectual and language impairment. Depressive disorder, unspecified. Tourette's disorder. [place] II Intellectual disability, by history. [place] III Deferred Town[place] IV Unknown. [place] V Global Assessment of Functioning 35. Medications Precautions ordered: 1:1 Treatments Patient is being provided with a high degree of safety through the structure and active adult engagement. We will focus on developing improved coping skills and identifying stressors that may have led to current episode. We will attempt to: Integrate into therapeutic groups, milieu and individual therapy. Maintain in a closely monitored and structured unit Provide low-stimulation environment Obtain collateral data to assist in treatment planning Assess degree of lability of affect and impulse control Complete safety plan Decrease frequency of relapse and need for re-hospitalization Denies thoughts of harm to self and/or others Establish a consistent sleep pattern Medication effective in stabilization of mood and/or thought process Reduce the risk of imminent harm to self and/or others by providing a safe environment Tolerates medication without side effects Patient will be on the following psychiatric medications: Thorazine 100 mg by mouth twice a day, with 100 mg by mouth every hour when necessary for aggression If patient's acute aggression remains decreased will attempt to transition him back to his outpatient medication regimen in the a.m. (Keron Kline and Jackie ) Address patient's legal status Patient is on a 14 day involuntary treatment hold. Disposition: Once patient is stabilized the plan is we will have him be to return to grandparents home. Tanner Manrique MD July 07, 2016 14:14
--- NOTE | 2016-07-07 21:08 | NUR ---
Observations 0900 - 0 Pt was in seclusion when shift started and had 1:1 for behavior and being unpredictable. Pt was moved back to room 230 after lunch. Pt speech and eye contact was ok, but he did swear at staff on a couple occasions. Pt requires some staff redirection at times. Pt is pleasant and friendly upon approach. Pt was social with peers and staff. Pt is polite and cooperative for the most part. Pt visited with his parents and it appeared to go well. Pt was observed every 15 minutes and had a 1:1 at all times throughout the shift as ordered. Pt is currently in bed resting and has been appropriate most of the afternoon and evening.
--- NOTE | 2016-07-08 05:46 | NUR ---
Pt had visit with family which appeared to go well. Remained in the consult room playing the piano at start of shift, appeared to be enjoying himself. Pt is easily distractible and guarded was able to remain in control of his emotions before taking his HS meds and going to bed. Pt initially had a 1:1 sitter due to recent seclusions due to disruption of milieu and aggressive gestures toward staff, however she was called to another assignment at 2129. Pt took HS meds and went to bed however he woke up agitated and yelling. Pt administered Thorazine 100mg prn at 2312 with good relief. Pt slept 7.75 without further incident.
[2016-07-08] MEDS ORDERED: Ergocalciferol (Vit D2) 50,000 Unit Capsule PO SCH (08:30)
[2016-07-08] MEDS: Polyethylene Glycol (PEG) 17 Gm Powder PO SCH (08:34)
--- NOTE | 2016-07-08 12:55 | PCM.PNPSY ---
Subjective Date of Service July 08, 2016 Subjective I spent 30 minutes both reviewing his treatment plan and providing supportive and educational psychotherapy. I spent more than 50% of the time counseling the patient. I attempted to review the treatment plan with the patient and discuss options available including the potential risks, benefits and side effects however the patient's cognitive status made this limited. Derrick reports "I want to sing [place]". The Staff reports that he had been refraining from any aggressive acting out or threats . He has been easily redirectable. For the past 24 hours he has been pleasant and cooperative . He is now participating well in one-to-one unit and group activities. He slept 8 hours. He denies medication side effects. Patient was not able to identify his medications or what they were used to treat. Current Medications Current Medications Chlorpromazine 100 mg BID PO Last administered on 07/08/16 06:51; Admin Dose 100 MG; Start 07/06/16 at 20:45 Chlorpromazine 100 mg Q1H PRN PO Last administered on 07/06/16 18:27; Admin Dose 100 MG; Start 07/06/16 at 16:48; Stop 07/06/16 at 20:44; Status DC Chlorpromazine 100 mg Q1H PRN PO Last administered on 07/08/16 08:34; Admin Dose 100 MG; Start 07/06/16 at 20:44 Ergocalciferol 50,000 unit DAILY PO Last administered on 07/08/16 08:34; Admin Dose 50,000 UNIT; Start 07/08/16 at 08:30; Stop 07/08/16 at 12:00; Status DC Mental Status Exam Appearance: Disheveled Attitude: Pleasant, Cooperative Behavior: Distractible Affect: Well Modulated/Appropriate Mood: Euthymic Thought Process/Associations: Tangential Speech Production: Normal Speech Rate: Normal Speech Articulation: Normal Thought Content: Autistic Danger to Self/Suicidal Ideati: None Danger to Others: None Consciousness: Alert Orientation: Person Memory: Grossly Intact, Untestable Estimate Intellectual Function: Developmentally delayed Basis for IQ estimate: Awareness current events, Word use/vocabulary, Educational history Attention/Concentration & Cogn: Impaired Insight: Limited Judgement: Limited Result Diagram: 07/03/16213407/03/162134 Mental Health Plan 20-year-old male with history of autism spectrum disorder, intellectual disability, unspecified depressive order, Tourette's syndrome, and multiple prior detainments for aggressive behavior most recently 03/29/2016. He presents with increasing aggressive and combative behaviors at home and with EMS. After similar episode potentially related to medication changes in March 2016 patient was discharged home on a medication regimen of clonazepam, fluvoxamine maleate, and Haldol which he has been relatively stable on. He does not appear to be responding to internal stimuli. However, the intensity and the change from baseline thoughts and behaviors was so extreme that I believed a psychotic condition had been triggered. He is no longer responding to staff with vulgar gestures nor responding unpredictably (suddenly strike out at grandparents, nurses, and security staff). His insight and judgement are severely impaired. His impulse control is markedly improved over the past 24 hours. Today we will attempt to transition him back to his regular medication regimen with the exception of decreasing Luvox. I am concerned at its previous dose of Luvox may have been contributing to his psychomotor agitation. If he tolerates this would anticipate discharge in the next 24-72 hours. [place] Mar[place] I Autism spectrum disorder with accompanying intellectual and language impairment. Depressive disorder, unspecified. Tourette's disorder. [place] II Intellectual disability, by history. [place] III Deferred Mar[place] IV Unknown. [place] V Global Assessment of Functioning 35. Medications Precautions ordered: Sharps Treatments Patient is being provided with a high degree of safety through the structure and active adult engagement. We will focus on developing improved coping skills and identifying stressors that may have led to current episode. We will attempt to: Integrate into therapeutic groups, milieu and individual therapy. Maintain in a closely monitored and structured unit Provide low-stimulation environment Obtain collateral data to assist in treatment planning Assess degree of lability of affect and impulse control Complete safety plan Decrease frequency of relapse and need for re-hospitalization Denies thoughts of harm to self and/or others Establish a consistent sleep pattern Medication effective in stabilization of mood and/or thought process Reduce the risk of imminent harm to self and/or others by providing a safe environment Tolerates medication without side effects Patient will be on the following psychiatric medications: Discontinue Thorazine 100 mg by mouth twice a day, with 100 mg by mouth every hour when necessary for aggression Reinstitute patient's outpatient medications with following changes Haldol 5mg q am and 2.5 hs Klonopin 1mg bid Luvox 75 mg bid melatonin 5 hs Address patient's legal status Patient is on a 14 day involuntary treatment hold. Disposition: Once patient is stabilized the plan is we will have him return to grandparents home. Tanner Manrique MD July 08, 2016 12:55
--- NOTE | 2016-07-08 14:50 | NUR ---
Nrsg Note Day shift S: Do other people live in other universes ? O: Pt disorganized with his thinking. Pt tried to interact with other patients today, however he gets very agitated with noise and then will have an outburst of yelling. Then calms right back down again. Pt is wearing rolled up black mats on his arms and states that they make me feel safe, he wears them out in the milieu area as well. Pt does best with small groups, pt played piano and sang after lunch for quite a while today. A: Pt appears to be unkempt. Pt will have outbursts when he thinks people are not listening to him or that they dont hear him. Pt has not shown any signs of aggression towards staff or patients this shift. P: Follow plan of care, monitor behaviors.
[2016-07-08] MEDS: LORazepam 2 mg Tablet PO PRN ×2 (18:39→22:05)
--- NOTE | 2016-07-08 19:56 | NUR ---
Observations 0900 to 2130 Pt maintained behavioral control throughout the shift. Pt is distracted but directable, childlike, euphoric. Pt started to escalate a few times during day but was quickly and easily redirected by sitter. Pt sang to self and played piano to keep himself busy during day, and had good visit with family in evening. Pt attended community meeting and set daily goal to order some leg braces. Pt ate 100% of meals and was observed 1:1 as ordered.
--- NOTE | 2016-07-08 23:09 | NUR ---
311 Evening nurse note Pt. has been cooperative this evening, with only a few outbursts of yelling and using profanity in the dinning area. Ate dinner and was involved with wrap-up this evening; did need to be encouraged to respect others and to keep his voice down. Enjoyed playing the piano and singing. Had a visit from his parents and did well with this interaction. Continues to wear rolled up yoga mats around his arms and also requested leg braces for his legs. Pt. easily re-directed when being distracted. Did make request for books, "Green eggs and ham" and "Are you my mother." Pt. resting in bed, 1:1 safety observation continues.
--- NOTE | 2016-07-08 23:11 | NUR ---
Nurses Note Evening 1:1 Patient has been maintained on 1:1 for safety,support and redirection. He has had periods of improved mood and cooperation mixed with episodes of loud yelling,cursing at staff and resistance to following directions. Patient received PRN Haldol 10mg and Ativan 2 mg at HS for an agitated and animated episode. Will continue care plan and 1:1.
[2016-07-08] MEDS ORDERED: LORazepam 2 mg Tablet PO ONE (23:45)
[2016-07-08] MEDS ORDERED: diphenhydrAMINE 25 mg Capsule PO ONE (23:45)
[2016-07-09] MEDS: chlorproMAZINE 25 mg/mL Inj IM PRN (00:12)
[2016-07-09] MEDS ORDERED: diphenhydrAMINE 25 mg Capsule PO ONE (00:45)
--- NOTE | 2016-07-09 02:36 | NUR ---
seclusion note nursing 11-7 s- will you read me a story ? i want to sing. i can do what i want. lunged at staff. kicked at security. o- one to one staffing at the start of the shift. required frequent redirection to assist with maintaining behavioral control. at approx 0050 started singing loudly and swearing at staff when redirected. became aggressive and tried to hit staff. security escorted to seclusion with hands on. continued to strike out at staff. threatened to bang head but then calmed enough to not require restraint. placed in seclusion at 0010. received 100 mg of thorazine im at 0015. continued to threaten staff and disrupt the unit with loud singing and screaming. dr. keys informed of the situation at 0050. received ativan 2 mg and benadryl 50 mg po at 0055. continues to be disruptive and threatening. received 100 mg of thorazine po at 0305. threatening and thru water cup at staff. disruptive behavior continues. throwing sandals at staff. began pounding head on the wall requiring 4 point restraint to prevent injury at 0330. fought restraints for a few minutes and is now lying quietly at 0345. circulation and rom are wnl. has direct line of sight one to one staff observation. a- limited ability to maintain appropriate safe behavior. limited ability to understand situation. frequently labile and explosive. disruptive behavior has a volitional quality to it. no apparent physical injury or distress. p- assist with maintaining safe and appropriate behavior that will allow return to the open milieu. suzanne
--- NOTE | 2016-07-09 05:46 | NUR ---
NOC OBS Pt labile in beginning of shift. Switching from happy to cussing at staff. Running up and down alberts. 1:1 staff with him. Multiple redirection about boundaries and appropriate language. Around 2330 pt began yelling and cussing. Staff attempted to redirect, listed to him tell a bedtime story, tucked him in, talked with him. A few minutes after leaving the room he got up and began yelling and cussing at staff and another patient. Staff attempted to redirect once again and Pt started to call staff names and then progressed to lunging and trying to intimidate staff by swinging his fist and hand at staff. Then began hitting himself in the head and continuing to yell and cuss. Security arrived and assisted to seclusion. Pt attempted to kick security. At 315 Pt began hitting zimmerman and yelling again. Then began banging head on wall. Security arrived to assist into restraint. Pt attempted to bite staff and grab and lunge at them. Pt able to contract for safety at 530 and back to seclusion where he remains active. Pt observed every 15 minutes as ordered.
--- NOTE | 2016-07-09 05:57 | NUR ---
restraint reduced to seclusion nursing 11-7 s- i'll be good. i'll obey the rules. i won't hurt myself. i lied. your stupid. o- during rom was able to demonstrate behavior appropriate for removal of restraint and trial in seclusion to further assess ability to maintain safe appropriate behavior. shortly after being placed in seclusion he swore at staff but has not attempted to harm himself. will allow to remain in seclusion as long as behavior allows. was removed from restraint and placed in seclusion at 0530. a- manipulative with behavior. no current self harm or disruptive behaviors. no apparent physical distress or injury. p- has direct line of sight one to one staffing. assist with behavioral control. will continue to assess behavior and return to open milieu when behavior allows. suzanne
[2016-07-09] MEDS: Polyethylene Glycol (PEG) 17 Gm Powder PO SCH (09:35)
[2016-07-09 10:04] VITALS: BP 105/65; PULSE 114; RESP 18
--- NOTE | 2016-07-09 17:29 | NUR ---
Nursing Note Day S: Arent you mad? Why wont you get mad? O: Pt was in isolation at beginning of shift. Pt was able to come out of isolation at 930am, pt benefited from a 1:1 sitter thereafter. Pt tries to get a reaction out of staff today. Today pt states says things at times just to get a reaction. Ie your name is awful: then he would stare and wait for this RN to have a reaction. Pt will have outbursts when he thinks people are not listening to him or that they dont understand him. Pt gets frustrated with other patients. Pt was using play today with regards to keeping himself occupied. Pt used hand puppets and was pretending to swim. A: Pt unkempt and hair disheveled. Pt mumbles with his speech and that is baseline for him. His thought process is linear. P: Follow plan of care, monitor behaviors. Medications have been changed today. Monitor for side effects
--- NOTE | 2016-07-09 18:43 | PCM.PNPSY ---
Subjective Date of Service July 09, 2016 Subjective The patient was placed in seclusion earlier due to aggressive behavior. He eventually calmed and was released. He was initially only minimally interactive with the treatment team. The patient's grandparents were contacted and indicated that he had been abruptly discontinued from clonazepam followed by haloperidol being decreased at bedtime. They noticed an increase in his anxiety with the abrupt discontinuation of the clonazepam and increase in his aggressive behavior with the decrease in haloperidol. They report that he responded somewhat to an increase in melatonin with improved sleep. The patient was seen later following receiving additional medication and he was bright and pleasant and reported that he felt "good". Sleep: None Appetite: Good Suicidal and homicidal ideation: Denies Auditory hallucinations: Denies Visual hallucinations: Denies Other Psychotic Symptoms: Unable to assess Anxiety: Unable to assess Depression: Unable to assess Current Medications Current Medications Amantadine HCl 100 mg DAILY PO Last administered on 07/09/16 14:11; Admin Dose 100 MG; Start 07/09/16 at 12:25 Chlorpromazine 100 mg Q1H PRN PO Last administered on 07/09/16 10:34; Admin Dose 100 MG; Start 07/09/16 at 02:00; Stop 07/09/16 at 12:34; Status DC Clonazepam 0.5 mg ONCE ONCE PO Last administered on 07/09/16 14:11; Admin Dose 0.5 MG; Start 07/09/16 at 12:25; Stop 07/09/16 at 12:47; Status DC Clonazepam 1 mg BID PO Last administered on 07/09/16 09:36; Admin Dose 1 MG; Start 07/08/16 at 20:30; Stop 07/09/16 at 12:34; Status DC Diphenhydramine HCl 50 mg ONCE ONCE PO Last administered on 07/09/16 00:51; Admin Dose 50 MG; Start 07/09/16 at 00:45; Stop 07/09/16 at 00:46; Status DC Ergocalciferol 50,000 unit DAILY PO Last administered on 07/08/16 08:34; Admin Dose 50,000 UNIT; Start 07/08/16 at 08:30; Stop 07/08/16 at 12:00; Status DC Fluvoxamine Maleate 75 mg BID PO Last administered on 07/09/16 09:35; Admin Dose 75 MG; Start 07/08/16 at 20:30 Guanfacine HCl 1 mg BID PO Last administered on 07/09/16 14:11; Admin Dose 1 MG ; Start 07/09/16 at 12:25 Haloperidol 2.5 mg HS PO Last administered on 07/08/16 21:03; Admin Dose 2.5 MG ; Start 07/08/16 at 21:00; Stop 07/09/16 at 12:34; Status DC Haloperidol 5 mg DAILY PO Last administered on 07/09/16 09:36; Admin Dose 5 MG ; Start 07/09/16 at 08:30 Haloperidol 10 mg Q4H PRN PO Last administered on 07/08/16 22:05; Admin Dose 10 MG; Start 07/08/16 at 18:35 Lorazepam 2 mg ONCE ONCE PO Last administered on 07/09/16 00:52; Admin Dose 2 MG; Start 07/08/16 at 23:45; Stop 07/08/16 at 23:57; Status DC Lorazepam 2 mg Q4H PRN PO Last administered on 07/08/16 22:05; Admin Dose 2 MG ; Start 07/08/16 at 18:35 Mental Status Exam Appearance: Unkept Attitude: Pleasant, Cooperative, Guarded Behavior: Distractible Affect: Restricted Mood: Irritable (then euthymic) Thought Process/Associations: Tangential Speech Production: Paucity Speech Rate: Lags/Latency Speech Articulation: Other (mild dysarthria) Thought Content: Autistic Danger to Self/Suicidal Ideati: None Danger to Others: None Hallucinations: Auditory (Denies), Visual (Denies) Consciousness: Alert Orientation: Person Memory: Untestable Estimate Intellectual Function: Developmentally delayed Basis for IQ estimate: Awareness current events, Word use/vocabulary, Educational history Attention/Concentration & Cogn: Impaired Insight: Limited Judgement: Limited Result Diagram: 07/03/16213407/03/162134 Mental Health Plan 20-year-old male with history of autism spectrum disorder, intellectual disability, unspecified depressive order, Tourette's syndrome, and multiple prior detainments for aggressive behavior most recently 03/29/2016. He presents with increasing aggressive and combative behaviors at home and with EMS. After similar episode potentially related to medication changes in March 2016 patient was discharged home on a medication regimen of clonazepam, fluvoxamine maleate, and Haldol which he has been relatively stable on. The patient appears to have had a worsening of his symptoms in response to abrupt changes in medication. On admission amantadine and guanfacine were discontinued and fluvoxamine was reduced. The patient would benefit from scientologist of amantadine and guanfacine and increasing clonazepam to 1.5 mg daily and 2 mg at bedtime. Consideration should be given to returning fluvoxamine 2 to 150 mg twice daily [place] I Autism spectrum disorder with accompanying intellectual and language impairment. Depressive disorder, unspecified. Tourette's disorder. [place] II Intellectual disability, by history. [place] III Deferred Monument IV Unknown. [place] V Global Assessment of Functioning 35. Medications Clonazepam 1 mg twice daily Haloperidol 5 mg daily and 2.5 mg nightly Fluvoxamine 75 mg twice daily Melatonin 5 mg nightly Haloperidol and chlorpromazine when necessary. Precautions ordered: Sharps Treatments 1. The patient is admitted to the inpatient unit and will be provided a safe and secure environment. 2. Due to unpredictable and aggressive behavior patient is in need of a one-to- one at this time. 3. The patient is encouraged to participate with group and milieu activities. 4. The patient will be seen by the treatment team on a daily basis to assess symptoms, side effects and response to treatment. 5. Increase Haldol to 5 mg twice daily 6. Increase clonazepam to 1.5 mg daily and 2 mg at bedtime and gradually tapered by 0.5 mg every 2 weeks. 7. Restart amantadine and increase at bedtime to 100 mg daily and 200 mg nightly 8. Restart guanfacine 1 mg twice daily 9. Increase melatonin to 10 mg nightly 10. Anticipated length of stay is 5-7 days. Sonu Gilliam MD July 09, 2016 18:43 Reinstitute patient's outpatient medications with following changes Haldol 5mg q am and 2.5 hs Klonopin 1mg bid Luvox 75 mg bid melatonin 5 hs Address patient's legal status Patient is on a 14 day involuntary treatment hold. Disposition: Once patient is stabilized the plan is we will have him return to grandparents home. Sonu Gilliam MD July 09, 2016 18:43
--- NOTE | 2016-07-09 18:48 | NUR ---
Nurses PRN Patient received Haldol 10mg for increasing agitation, cursing and belligerence with being redirected, will assess response. Patient remains on 1:1 for safety and support.
--- NOTE | 2016-07-09 20:26 | NUR ---
Observations 0900 - 0 Pt was in seclusion when shift started and had 1:1 for behaviors and being unpredictable. Pt was moved back to room 230 after breakfast. Pt speech and eye contact was ok, but he did swear at staff on a couple occasions. Pt requires some staff redirection at times. Pt is pleasant and friendly upon approach. Pt was social with some peers and staff. Pt is polite and cooperative for the most part. Pt visited with his parents and it appeared to go well. Pt is currently in bed resting with eyes closed and respirations apparent. Pt has been appropriate most of the afternoon and evening. Pt was observed every 15 minutes and had a 1:1 at all times throughout the shift as ordered.
--- NOTE | 2016-07-09 23:33 | NUR ---
Nurses Note Evening Patient has been maintained on 1:1 observation for safety and support.He remained in behavioral control most of the shift until later in the evening when he began to escalate cursing and belligerent with staff. Patient received Haldol 10mg at 1848 with good response as patient was able to fall asleep. Patient will remain on 1:1 for safety and support.
[2016-07-10] MEDS: LORazepam 2 mg Tablet PO PRN (04:10)
--- NOTE | 2016-07-10 05:56 | NUR ---
Nursing notes: welder 2nd shift/ sleep and prn medications Patient noted to be sleeping with 1:1 sitter due to recent seclusion and unpredictable behavior. Patient awake at 0400, up to bathroom, but was already incontinent of urine. Patient assisted with linen change and hygiene. Patient requesting something to eat, then asking "where did Mr Negron go?" then walks off laughing to self. Patient received Haldol 10 mg po and Ativan 1 mg po along with snack. Patient was able to return to room and appears to be sleeping the remainder of shift.
[2016-07-10 08:55] VITALS: BP 111/71; PULSE 72; RESP 18
[2016-07-10] MEDS: Polyethylene Glycol (PEG) 17 Gm Powder PO SCH (10:21)
--- NOTE | 2016-07-10 13:04 | NUR ---
Nursing Note [id number] Behavior S/O: Pt ate 100% of breakfast, but slept through lunch. He was up for a few hours at breakfast time, but has been sleeping most of the day. Pt has been cooperative & polite when awake. Conversation tracking is concrete & juvenile. 1:1 sitter discontinued this morning d/t presenting more calm today than yesterday. Heaven Negrete from [facility] her to visit with pt. She stated she wasn't able to evaluate him d/t somnolence. A: Pt had more behavioral control. P: Provide supportive environment. Monitor medications & effects.
--- NOTE | 2016-07-10 16:07 | NUR ---
Observations 0900 to 2130 Pt had 1:1 at start of the shift, and 1:1 was discontinued about 9:30. Pt affect and mood was flat and isolative. Pt was isolative and in bed most of the shift, coming out of room for meals. Pt did not attend community meeting, group or unit activities. Pt was minimally social when approached by staff and peers. Pt attended meals in D.[facility]. and ate 100% of breakfast and lunch. Pt was polite, pleasant and cooperative. Pt maintained behavior throughout the shift and hasn't had any outbursts. Pt is able to follow staff direction. Pt was observed every 15 minutes throughout the shift as ordered. Pt is currently resting in bed.
[2016-07-10 19:44] VITALS: BP 119/71; PULSE 94; RESP 16
--- NOTE | 2016-07-10 22:56 | PCM.PNPSY ---
Subjective Date of Service July 10, 2016 Subjective Patient slept well last night. He reports that his mood is good. He reported feeling somewhat drowsy. Later, he greeted this advertising copy writer and stated, "live long and prosper" and smiled. No other side effect complaints. Sleep: 10+ hours Appetite: good Suicidal and homicidal ideation: denies Auditory hallucinations: denies Visual hallucinations: denies Other Psychotic Symptoms: N/A Anxiety: denies Depression: denies Current Medications Current Medications Amantadine HCl 100 mg DAILY PO Last administered on 07/10/16 10:22; Admin Dose 100 MG; Start 07/09/16 at 12:25 Amantadine HCl 200 mg HS PO Last administered on 07/10/16 20:33; Admin Dose 200 MG; Start 07/09/16 at 21:00 Chlorpromazine 100 mg Q1H PRN PO Last administered on 07/09/16 10:34; Admin Dose 100 MG; Start 07/09/16 at 02:00; Stop 07/09/16 at 12:34; Status DC Clonazepam 0.5 mg ONCE ONCE PO Last administered on 07/09/16 14:11; Admin Dose 0.5 MG; Start 07/09/16 at 12:25; Stop 07/09/16 at 12:47; Status DC Clonazepam 1.5 mg DAILY PO Last administered on 07/10/16 10:21; Admin Dose 1.5 MG; Start 07/10/16 at 08:30 Clonazepam 2 mg HS PO Last administered on 07/10/16 20:35; Admin Dose 2 MG; Start 07/09/16 at 21:00 Diphenhydramine HCl 50 mg ONCE ONCE PO Last administered on 07/09/16 00:51; Admin Dose 50 MG; Start 07/09/16 at 00:45; Stop 07/09/16 at 00:46; Status DC Fluvoxamine Maleate 150 mg HS PO Last administered on 07/10/16 20:34; Admin Dose 150 MG; Start 07/09/16 at 21:00 Guanfacine HCl 1 mg BID PO Last administered on 07/10/16 20:34; Admin Dose 1 MG ; Start 07/09/16 at 12:25 Haloperidol 5 mg DAILY PO Last administered on 07/10/16 10:20; Admin Dose 5 MG ; Start 07/09/16 at 08:30 Haloperidol 5 mg HS PO Last administered on 07/10/16 20:34; Admin Dose 5 MG; Start 07/09/16 at 21:00 Lorazepam 2 mg ONCE ONCE PO Last administered on 07/09/16 00:52; Admin Dose 2 MG; Start 07/08/16 at 23:45; Stop 07/08/16 at 23:57; Status DC Melatonin 10 mg HS PRN PO Last administered on 07/09/16 22:12; Admin Dose 10 MG; Start 07/09/16 at 12:25 Mental Status Exam Vital Signs Vital Signs Date Time Temp Pulse Resp B/P Pulse Ox O2 Delivery O2 Flow Rate FiO2 07/10/16 19:44 36.5 94 16 119/71 Appearance: Unkept Attitude: Pleasant, Cooperative Behavior: Distractible Affect: Restricted Mood: Euthymic Thought Process/Associations: Logical/Sequential, Goal Directed Speech Production: Paucity Speech Rate: Lags/Latency Speech Articulation: Other (mild dysarthria) Thought Content: Autistic Danger to Self/Suicidal Ideati: None Danger to Others: None Hallucinations: Auditory (Denies), Visual (Denies) Consciousness: Alert Orientation: Person Memory: Untestable Estimate Intellectual Function: Developmentally delayed Basis for IQ estimate: Awareness current events, Word use/vocabulary, Educational history Attention/Concentration & Cogn: Impaired Insight: Limited Judgement: Limited Mental Health Plan 20-year-old male with history of autism spectrum disorder, intellectual disability, unspecified depressive order, Tourette's syndrome, and multiple prior detentions for aggressive behavior most recently 03/29/2016. He presents with increasing aggressive and combative behaviors at home and with EMS. After similar episode potentially related to medication changes in March 2016 patient was discharged home on a medication regimen of clonazepam, fluvoxamine maleate, and Haldol which he has been relatively stable on. The patient appears to have had a worsening of his symptoms in response to abrupt changes in medication. On admission amantadine and guanfacine were discontinued and fluvoxamine was reduced. The patient appears to have improved from medications yesterday and slept well overnight with improved affect today. [place] I Autism spectrum disorder with accompanying intellectual and language impairment. Depressive disorder, unspecified. Tourette's disorder. [place] II Intellectual disability, by history. [place] III Deferred [place] IV Unknown. [place] V Global Assessment of Functioning 35. Medications Clonazepam 1.5mg daily and 2mg nightly Haloperidol 5 mg daily and 5 mg nightly Fluvoxamine 75 mg daily and 150mg nightly Amantadine 100mg daily and 200mg nightly Guanfacine 1mg po bid Melatonin 10 mg nightly Haloperidol when necessary. Precautions ordered: Sharps Treatments 1. The patient is admitted to the inpatient unit and will be provided a safe and secure environment. 2. Due to unpredictable and aggressive behavior patient is in need of a one-to- one at this time. 3. The patient is encouraged to participate with group and milieu activities. 4. The patient will be seen by the treatment team on a daily basis to assess symptoms, side effects and response to treatment. 5. Increase fluvoxamine to 300mg nightly starting tomorrow. 6. Continue other medications as written. 7. Anticipated length of stay is 5-7 days. Sonu Gilliam MD July 10, 2016 22:56
--- NOTE | 2016-07-10 23:12 | NUR ---
NURSING NOTE [id number] Mood: "fine" Affect: fatigued at start of shift, alert after dinner. Childlike. Appropriate overall. Behavior: resting in bed at start of shift and declined to speak w/this repairer typewriter at that time. Ate 100% of his dinner, shook hands w/a peer (C.B.) whom he had previously squabbled with, signifying what they called a "friendship truce". Has maintained behavioral control for duration of shift. Thought processes: pt. denies any depression or anxiety this shift. Pt. does not appear to be delusional and denied AH/VH/SI/HI.
--- NOTE | 2016-07-11 06:18 | NUR ---
Nursing Note 11pm to 7am Paper Roll Machine Operator Pt asleep at start of shift and remained asleep for the duration No issues observed or reported. Monitored pt with q 15 minute face checks for safety, location and accountability.
[2016-07-11 08:20] VITALS: BP 117/73; RESP 17
[2016-07-11] MEDS: Polyethylene Glycol (PEG) 17 Gm Powder PO SCH (09:28)
--- NOTE | 2016-07-11 14:27 | NUR ---
Nursing Note [id number] Behavior S/O: Pt ate 100% of breakfast & lunch. Pt complained several times today of feeling "tranquilized." He wanted an "energy pill" to wake up. Pt exercising in room several times to "wake up." Pt pleasant & cooperative with staff & peers. No s/sx of aggression. Conversation tracking clear & concrete. Vital signs stable. A: Pt needs more medications stabilization. P: Provide supportive environment. Monitor medications & effects.
--- NOTE | 2016-07-11 16:13 | PCM.PNPSY ---
Subjective Date of Service July 11, 2016 Subjective Patient slept well last night. He reports that his mood is good, he is playing the piano when we begin our visit today. He reported feeling tired. No other side effect complaints. Per staff he has been pleasant, and is easily redirected. He is requesting splints for his arms and orthotic boots for his feet to decrease agitation. Sleep: 8+ hours Appetite: good Suicidal and homicidal ideation: denies Auditory hallucinations: denies Visual hallucinations: denies Other Psychotic Symptoms: N/A Anxiety: denies Depression: denies Current Medications Current Medications Amantadine HCl 200 mg HS PO Last administered on 07/10/16 20:33; Admin Dose 200 MG; Start 07/09/16 at 21:00 Clonazepam 1.5 mg DAILY PO Last administered on 07/11/16 09:27; Admin Dose 1.5 MG; Start 07/10/16 at 08:30 Clonazepam 2 mg HS PO Last administered on 07/10/16 20:35; Admin Dose 2 MG; Start 07/09/16 at 21:00 Fluvoxamine Maleate 150 mg HS PO Last administered on 07/10/16 20:34; Admin Dose 150 MG; Start 07/09/16 at 21:00; Stop 07/10/16 at 22:57; Status DC Haloperidol 5 mg HS PO Last administered on 07/10/16 20:34; Admin Dose 5 MG; Start 07/09/16 at 21:00 Mental Status Exam Vital Signs Vital Signs Date Time Temp Pulse Resp B/P Pulse Ox O2 Delivery O2 Flow Rate FiO2 07/11/16 08:20 35.8 17 117/73 Appearance: Unkept Attitude: Pleasant, Cooperative Behavior: Distractible Affect: Restricted Mood: Euthymic Thought Process/Associations: Logical/Sequential, Goal Directed Speech Production: Paucity Speech Rate: Lags/Latency Speech Articulation: Other (mild dysarthria) Thought Content: Autistic Danger to Self/Suicidal Ideati: None Danger to Others: None Hallucinations: Auditory (Denies), Visual (Denies) Consciousness: Alert Orientation: Person Memory: Untestable Estimate Intellectual Function: Developmentally delayed Basis for IQ estimate: Awareness current events, Word use/vocabulary, Educational history Attention/Concentration & Cogn: Impaired Insight: Limited Judgement: Limited Result Diagram: 07/11/16 1110 Mental Health Plan 20-year-old male with history of autism spectrum disorder, intellectual disability, unspecified depressive order, Tourette's syndrome, and multiple prior detentions for aggressive behavior most recently 03/29/2016. He presents with increasing aggressive and combative behaviors at home and with EMS. After similar episode potentially related to medication changes in March 2016 patient was discharged home on a medication regimen of clonazepam, fluvoxamine maleate, and Haldol which he has been relatively stable on. The patient appears to have had a worsening of his symptoms in response to abrupt changes in medication. On admission amantadine and guanfacine were discontinued and fluvoxamine was reduced. The patient appears to have improved from medications yesterday and slept well overnight with improved affect today. Improved greatly in mood and affect since last week. He is pleasant and actively seeking ways of staying active and making himself more comfortable by playing piano and using provided weighted blanket. [place] Merrill I Autism spectrum disorder with accompanying intellectual and language impairment. Depressive disorder, unspecified. Tourette's disorder. [place]ill II Intellectual disability, by history. Merrill III Deferred Merrill IV Unknown. Merrill V Global Assessment of Functioning 35. Medications Clonazepam 1.0mg daily and 2mg nightly Haloperidol 5 mg daily and 5 mg nightly Fluvoxamine 300mg nightly Amantadine 100mg daily and 200mg nightly Guanfacine 1mg po bid Melatonin 10 mg nightly Haloperidol when necessary. Precautions ordered: Sharps Treatments 1. The patient is admitted to the inpatient unit and will be provided a safe and secure environment. 2. Due to unpredictable and aggressive behavior patient is in need of a one-to- one at this time. 3. The patient is encouraged to participate with group and milieu activities. 4. The patient will be seen by the treatment team on a daily basis to assess symptoms, side effects and response to treatment. 5. Increase fluvoxamine to 300mg nightly. 6. Decrease morning clonazepam to 1.0 mg secondary to daytime sleepiness. 7. Continue other medications as written. 8. Anticipated length of stay is 5-7 days. Attending Statement The patient was seen and examined together with Dr. Preciado on 07/11/16 and I have added additional information to the note above. Radha Preciado DO July 11, 2016 16:13 Sonu Gilliam MD July 11, 2016 22:27
--- NOTE | 2016-07-11 17:50 | NUR ---
Observations [id number] Pt was asleep upon start of shift. Pt was friendly with staff and peers today. He spent time in the common area coloring, attended all meals eating 100%. Pt also played piano and sang and danced in the dining area. Pt received a weighted blanket which he found to be comforting. He requested that he wear yoga mats around his arms as he likes the feeling of being confined. Pt as able to get along with peers and staff. This morning he told this literary writer that he "slept well, and having the best day ever." Pt was observed every 15 minutes of shift as directed.
[2016-07-11] MEDS: LORazepam 2 mg Tablet PO PRN (22:48)
[2016-07-12 03:09] LABS: Hepatitis A Antibody IgM Negative (Negative); Hepatitis B Core Antibody IgM Negative (Negative)
--- NOTE | 2016-07-12 06:18 | NUR ---
Sleep 11p-7a Adequate sleep of 7 hours w/ a repeat of Ambien 5mg given @ 0345 with good effect.
[2016-07-12] MEDS: Polyethylene Glycol (PEG) 17 Gm Powder PO SCH (08:34)
[2016-07-12 13:26] VITALS: BP 120/70; PULSE 67; RESP 16
--- NOTE | 2016-07-12 14:02 | NUR ---
Nursing Note [id number] S/O: Pt ate 100% of meals. He stated he was "really tired...I went to bed really late. Maybe that's why I'm tired." Pt in milieu. Pleasant & cooperative with peers & staff. Interacting with peers in piano room playing the piano. Conversation tracking clear & organized with normal rate & rhythm. Thinking is concrete. Pt has taken medications as ordered. A: Pt is improving. P: Provide supportive environment. Monitor medications & effects.
--- NOTE | 2016-07-12 15:53 | PCM.PNPSY ---
Subjective Date of Service July 12, 2016 Subjective Derrick reports doing well today, he is more up beat, singing and playing the piano. He feels less tired and took a shower today which has helped make him feel more awake. During our visit today he is relatively easily distractible. He requests braces for his legs as he would like for his ankles to be supported when he sleeps. Sleep: 7 hours Appetite: good Suicidal and homicidal ideation: denies Auditory hallucinations: denies Visual hallucinations: denies Other Psychotic Symptoms: denies Anxiety: denies Depression: does not endorse Current Medications Current Medications Clonazepam 1 mg DAILY PO Last administered on 07/12/16 08:33; Admin Dose 1 MG; Start 07/12/16 at 08:30 Fluvoxamine Maleate 300 mg HS PO Last administered on 07/11/16 21:11; Admin Dose 300 MG; Start 07/11/16 at 21:00 Mental Status Exam Vital Signs Vital Signs Date Time Temp Pulse Resp B/P Pulse Ox O2 Delivery O2 Flow Rate FiO2 07/12/16 13:26 35.8 67 16 120/70 Appearance: Neat/well groomed Attitude: Pleasant, Cooperative Behavior: Distractible Affect: Restricted Mood: Euthymic Thought Process/Associations: Logical/Sequential, Goal Directed Speech Production: Paucity Speech Rate: Lags/Latency Speech Articulation: Other (mild dysarthria) Thought Content: Autistic Danger to Self/Suicidal Ideati: None Danger to Others: None Hallucinations: Auditory (Denies), Visual (Denies) Consciousness: Alert Orientation: Person Memory: Untestable Estimate Intellectual Function: Developmentally delayed Basis for IQ estimate: Awareness current events, Word use/vocabulary, Educational history Attention/Concentration & Cogn: Impaired Insight: Limited Judgement: Limited Result Diagram: 07/11/16 1110 Mental Health Plan 20-year-old male with history of autism spectrum disorder, intellectual disability, unspecified depressive order, Tourette's syndrome, and multiple prior detainments for aggressive behavior most recently 03/29/2016. He presents with increasing aggressive and combative behaviors at home and with EMS. After similar episode potentially related to medication changes in March 2016 patient was discharged home on a medication regimen of clonazepam, fluvoxamine maleate, and Haldol which he has been relatively stable on. He does not appear to be responding to internal stimuli. However, the intensity and the change from baseline thoughts and behaviors is so extreme that I believe a psychotic condition had been triggered prior to admission. Improved greatly in mood and affect since last week. He is pleasant and actively seeking ways of staying active and making himself more comfortable by playing piano and using provided weighted blanket. His easy distractibility is consistent with autism and more likely closer to his baseline. He reports his mom is coming to visit today and we will anticipate her assessment and that of other visitors. He continues to be pleasant and get along with other peers and staff. Heel boots will be provided for patient comfort. Hepatitis panel to assess for hepatitis prior to admission to a jail, resulted as negative. In order to additionally help with decreasing sedation we will move daily haldol dosing to bedtime. At home using two 5 mg tablets at bedtime will be adequate but one tablet can be used earlier in the day if necessary for agitated behavior. Malden Malden I Autism spectrum disorder with accompanying intellectual and language impairment. Depressive disorder, unspecified. Tourette's disorder. Malden II Intellectual disability, by history. Malden III Deferred Malden IV Unknown. Malden V Global Assessment of Functioning 35. Medications Clonazepam 1.0mg daily and 2mg nightly Haloperidol 5 mg daily and 5 mg nightly Fluvoxamine 300mg nightly Amantadine 100mg daily and 200mg nightly Guanfacine 1mg po bid Melatonin 10 mg nightly Haloperidol when necessary. Precautions ordered: Sharps Treatments 1. The patient is admitted to the inpatient unit and will be provided a safe and secure environment. 2. Due to unpredictable and aggressive behavior patient is in need of a one-to- one at this time. 3. The patient is encouraged to participate with group and milieu activities. 4. The patient will be seen by the treatment team on a daily basis to assess symptoms, side effects and response to treatment. 5. Increase fluvoxamine to 300mg nightly. 6. Decrease morning clonazepam to 1.0 mg secondary to daytime sleepiness. 7. Continue other medications as written. 8. Heel boots ordered for patient comfort as he would like for his ankles to be supported when he sleeps 9. Anticipated length of stay is 5-7 days. Attending Statement The patient was seen and examined together with Dr. Preciado on 07/12/16 and I agree with the history, exam and plan as outlined in the note above. Radha Preciado DO July 12, 2016 14:10 Sonu Gilliam MD July 12, 2016 23:31
--- NOTE | 2016-07-12 18:34 | NUR ---
[facility] Day Shift Pt maintained behavioral control throughout the shift. Pt affect appears mostly euthymic. Pt spends most of the shift resting in his room, engaging in unit activities, and interacting with peers. Pt is appropriate with staff and pees when active on the unit. Pt appears childlike, delayed in his interactions with staff and peers. Pt spends a good portion of the shift playing the unit piano. Pt attended community meeting and lightly participated in unit group activities throughout the shift. Pt attended all meals and ate approx 100% of all meals.
--- NOTE | 2016-07-12 20:29 | NUR ---
Application Support Engineer/Counselor: S/O: Patient slept 6.5+ hours last night as per staff. He denies S/I and H/I. He denies auditory and visual hallucinations. He does not endorse depression. Anxiety is 0/10. A: Patient is cooperative, pleasant, distractible, restricted affect, euthymic, limited insight, limited judgment. P: Follow the care plan, coordinate with out-patient providers.
[2016-07-12] MEDS: LORazepam 2 mg Tablet PO PRN (20:56)
--- NOTE | 2016-07-12 23:38 | NUR ---
Nurses Note Evening Patient has been cheerful with staff and peers. He was visited by his parents who are pleased with his progress. Patient requested "braces" for his feet and received cushioned heel protectors at bedtime. He remains medication compliant without adverse effects. Will maintain q 15min. checks for safety and support. Addendum: 07/12/16 at 1641 by DILLON RUSSELL RN Amended: Links added.
--- NOTE | 2016-07-13 04:51 | NUR ---
nursing, nights, 11-7 s/o- has appeared to sleep after 0 during q 15 minute assessments. a- no apparent distress. p- monitor behavior/emotional state, quality, times and amount of sleep, use and effect of medication. suzanne
[2016-07-13 09:30] VITALS: BP 114/68; PULSE 89; RESP 17
[2016-07-13] MEDS: Polyethylene Glycol (PEG) 17 Gm Powder PO SCH (09:46)
--- NOTE | 2016-07-13 13:46 | NUR ---
Nursing Dayshift: S: "I can't find my lyrics to the [place] theme song." O: Patient unable to find lyrics printed up for him yesterday. A couple more copies given to him today. Has been playing the piano and singing the theme song this AM with peer and staff complimenting him on his artistry. Has foam boots on along with rolled up yoga mats on each arm at present. States he feels more comfortable "like this". Denies anxiety, depression, harmful thoughts, and hallucinations. A: Social. Good mood. P: CPOC. Monitor mood and behavior.
--- NOTE | 2016-07-13 15:36 | PCM.PNPSY ---
Subjective Date of Service July 13, 2016 Subjective Derrick seems to be nearly at baseline. He has adjusted well to staying here, we were able to find "braces" for his feet in the form of heel ulcer boots that he puts on to sleep. He also has taped arms today over his jacket for comfort. He is in good spirits and is interacting appropriately without any outbursts or signs of agitation. Per report his grandparents feel that he is back to his usual self. Sleep: Good, tired Appetite: Good Suicidal and homicidal ideation: denies Auditory hallucinations: denies Visual hallucinations: denies Other Psychotic Symptoms: none Anxiety: denies Depression: denies Current Medications Current Medications Clonazepam 1 mg DAILY PO Last administered on 07/13/16 09:46; Admin Dose 1 MG; Start 07/12/16 at 08:30 Fluvoxamine Maleate 300 mg HS PO Last administered on 07/12/16 20:56; Admin Dose 300 MG; Start 07/11/16 at 21:00 Mental Status Exam Vital Signs Vital Signs Date Time Temp Pulse Resp B/P Pulse Ox O2 Delivery O2 Flow Rate FiO2 07/13/16 09:30 36.1 89 17 114/68 Appearance: Neat/well groomed Attitude: Pleasant, Cooperative Behavior: Distractible Affect: Restricted Mood: Euthymic Thought Process/Associations: Logical/Sequential, Goal Directed Speech Production: Paucity Speech Rate: Lags/Latency Speech Articulation: Other (mild dysarthria) Thought Content: Autistic Danger to Self/Suicidal Ideati: None Danger to Others: None Hallucinations: Auditory (Denies), Visual (Denies) Consciousness: Alert Orientation: Person Memory: Untestable Estimate Intellectual Function: Developmentally delayed Basis for IQ estimate: Awareness current events, Word use/vocabulary, Educational history Attention/Concentration & Cogn: Impaired Insight: Limited Judgement: Limited Result Diagram: 07/11/16 1110 Mental Health Plan 20-year-old male with history of autism spectrum disorder, intellectual disability, unspecified depressive order, Tourette's syndrome, and multiple prior detainments for aggressive behavior most recently 03/29/2016. He presents with increasing aggressive and combative behaviors at home and with EMS. After similar episode potentially related to medication changes in March 2016 patient was discharged home on a medication regimen of clonazepam, fluvoxamine maleate, and Haldol which he has been relatively stable on. He does not appear to be responding to internal stimuli. However, the intensity and the change from baseline thoughts and behaviors is so extreme that I believe a psychotic condition had been triggered prior to admission. Improved greatly in mood and affect since last week. He is pleasant and actively seeking ways of staying active and making himself more comfortable by playing piano and using provided weighted blanket. His behaviors involving weighted blanket and taped arms are consistent with autism and his baseline. He continues to be pleasant and get along with other peers and staff. Heel boots are provided for patient comfort which he appreciates. Hepatitis panel to assess for hepatitis prior to admission to a assisted, resulted as negative. In order to additionally help with decreasing sedation we moved daily haldol dosing to bedtime. At home using two 5 mg tablets at bedtime will be adequate but one tablet can be used earlier in the day if necessary for agitated behavior. Logan Logan I Autism spectrum disorder with accompanying intellectual and language impairment. Depressive disorder, unspecified. Tourette's disorder. Logan II Intellectual disability, by history. Logan III Deferred Logan IV Unknown. Logan V Global Assessment of Functioning 35. Medications Clonazepam 1.0mg daily and 2mg nightly Haloperidol 5 mg daily and 5 mg nightly Fluvoxamine 300mg nightly Amantadine 100mg daily and 200mg nightly Guanfacine 1mg po bid Melatonin 10 mg nightly Haloperidol when necessary. Precautions ordered: Sharps Treatments 1. The patient is admitted to the inpatient unit and will be provided a safe and secure environment. 2. Due to unpredictable and aggressive behavior patient is in need of a one-to- one at this time. 3. The patient is encouraged to participate with group and milieu activities. 4. The patient will be seen by the treatment team on a daily basis to assess symptoms, side effects and response to treatment. 5. Increase fluvoxamine to 300mg nightly. 6. Decrease morning clonazepam to 1.0 mg secondary to daytime sleepiness. 7. Haldol 10mg HS, one 5mg tablet can be given earlier in the day if needed at home. 8. Continue other medications as written. 9. Heel boots ordered for patient comfort as he would like for his ankles to be supported when he sleeps 10. Anticipated discharge home tomorrow. Attending Statement The patient was seen and examined together with Dr. Preciado on 07/13/16 and I agree with the history, exam and plan as outlined in the note above. Radha Preciado DO July 13, 2016 15:36 Sonu Gilliam MD July 13, 2016 21:59
--- NOTE | 2016-07-13 18:05 | NUR ---
Observations [id number] Pt was social with peers and staff. He spent time playing piano and singing around unit and enjoyed receiving compliments from staff and peers. Pt attended all meals, eating 100%. Pt also spent time sleeping in room. He was observed every 15 minutes of shift as directed.
--- NOTE | 2016-07-14 05:45 | NUR ---
Nursing Noc Patient presents pleasant and cooperative. Noted to be watching TV until bed time and asleep at 2315 then awakened by activities in milieu at 0315. Pt attempted to return to sleep after snacks. Plan for discharge home today with Grandparents. Continuing to monitor mood, behavior, emotional state. CP
[2016-07-14] MEDS: Polyethylene Glycol (PEG) 17 Gm Powder PO SCH (09:24)
--- NOTE | 2016-07-14 13:52 | PCM.DIMED ---
Discharge Instructions Date of Service July 14, 2016 Dates of Hospitalization July 05, 2016 at 14:43 Discharge Diagnosis Discharge Diagnosis Bristol I Autism spectrum disorder, level 2 restricted, repetitive behaviors, level 2 social communication, by history Depressive disorder, unspecified. Obsessive Compulsive Disorder, by history Tourette's disorder, by history. Attention Deficit Hyperactivity Disorder, by history Bristol II Intellectual disability, mild, by history. Bristol III None acute Bristol IV No new stressors. Bristol V Global Assessment of Functioning 40 Medication Instructions Recommend very slow taper of clonazepam by 0.5mg every 2-4 weeks to reduce the likelihood of behavioral manifestations. Diet No restrictions Activity No restrictions Patient Instructions Should you have any thoughts of harming yourself or others, please call the crisis line, your provider, 911, or go to the nearest Emergency Department. Do not change or discontinue your medications without discussing with your provider. You have been given a prescription for 30 days supply of your new medication Follow-up plan Counselor Kitty Keen on 07/17/16 @ 1:00pm [address] [place] [address] Medication Managment KASIE Gonzalez on 07/25/16@ 1:20pm [facility] [address] [place] [address] Sonu Gilliam MD July 14, 2016 13:52
[2016-07-14] MEDS ORDERED: CHOL500050 PO (14:00)
[2016-07-14] MEDS ORDERED: IBUP800T28 PO (14:00)
[2016-07-14] MEDS ORDERED: TRAZ-118 PO (14:00)
[2016-07-14] MEDS ORDERED: KLO1T PO ×2 (14:00)
[2016-07-14] MEDS ORDERED: MELA5TAB14 PO (14:00)
[2016-07-14] MEDS ORDERED: FLUV150C2 PO (14:00)
[2016-07-14] MEDS ORDERED: POLY17PO6 PO (14:00)
[2016-07-14] MEDS ORDERED: AMN100C PO ×2 (14:00)
[2016-07-14] MEDS ORDERED: HAL5 PO (14:00)
[2016-07-14] MEDS ORDERED: GUAN1TAB PO (14:00)
--- NOTE | 2016-07-14 14:57 | NUR ---
Rn Utilization Management Um/Counselor: S/O: Patient slept 4 hours last night as per staff. He denies S/I and H/I. He denies auditory and visual hallucinations. Depression is 0/10 and anxiety is 0/10. Out-patient appointments: Alondra Keen, [facility] therapist, 07/17/16 at 1:00pm and Corina Mccollum, [facility] prescriber, 07/25/16 at 1:20pm. A: Patient is cooperative, pleasant, bright, improved, limited insight, limited judgment. P: Follow the care plan, coordinate with out-patient providers.
--- NOTE | 2016-07-14 16:06 | PCM.DC.MED ---
Discharge Summary Date of Service July 14, 2016 Dates of Hospitalization Date of Hospital Admission July 05, 2016 at 14:43 Date of Discharge: July 14, 2016 Providers: Admitting Physician: Tanner Manrique MD Primary Care Physician: Joss Mancuso MD Attending Physician: Tanner Manrique MD Diagnosis at Time of Discharge Diagnosis at Time of Discharge [place] I Autism spectrum disorder, level 2 restricted, repetitive behaviors, level 2 social communication, by history Depressive disorder, unspecified. Obsessive Compulsive Disorder, by history Tourette's disorder, by history. Attention Deficit Hyperactivity Disorder, by history [place] II Intellectual disability, mild, by history. [place] III None acute [place] IV No new stressors. [place] V Global Assessment of Functioning 40 Brief History Per admission note on July 09, 2016: Patient is a 20-year-old male with history of autism spectrum disorder, intellectual disability, unspecified depressive order, Tourette's syndrome, and multiple prior detainments for aggressive behavior most recently 03/29/2016. The patient was home where he resides with his grandparents. His mother suggested that he takes a shower and he states that he "got mad". He is unable to provide much additional history, so information is taken from the record. EMS was called, he was combative with the paramedics. He arrived to the emergency department on ketamine, subsequently had IM injections of Zyprexa, Haldol, lorazepam, and Benadryl. Patient's behaviors including spitting, shouting threats and insults through the door, and generally being aggressive were initially refractory to medications. He was admitted to the [facility] seclusion room where he resides at time of interview. Patient was not responsive to previous attempts to consent for safety. He was sleepy and calm at the time of interview. He was able to state that he would be safe and agree not to hit kick or attempt to injure anyone. He continued to be evasive in answering questions about his medical history. He does not recall many of the events or does not want to share what he remembers prior to coming to the hospital. He states that one thing he can do to keep from getting mad is watch TV. His favorite show is [employer]. He feels that additional support once home will be helpful. Clonazepam was discontinued in the outpatient setting prior to decompensation. Hospital Course 20-year-old male with history of autism spectrum disorder, intellectual disability, unspecified depressive order, Tourette's syndrome, and multiple prior detainments for aggressive behavior most recently 03/29/2016 [address] [facility]. He presented with increasing aggressive and combative behaviors both at home and with EMS. After similar episode potentially related to medication changes in March 2016 patient was discharged home on a medication regimen of clonazepam, fluvoxamine maleate, and Haldol which he has been relatively stable on. He does not appear to be responding to internal stimuli. However, the intensity and the change from baseline thoughts and behaviors is so extreme that I believe a psychotic condition had been triggered prior to admission. He was placed on a decreased dose of Luvox and Thorazine. Over the weekend he again was placed in seclusion for agitated behaviors. He improved greatly in mood and affect since being placed back on his Amantadine , guanfacine, clonazepam, and increased his dose of Luvox to his prior home dose of 300mg. He is pleasant and actively seeking ways of staying active and making himself more comfortable by playing piano and using provided weighted blanket. He was having some daytime sleepiness so his morning clonazepam dose was decreased by 0.5mg His behaviors involving weighted blanket and taped arms have been consistent with autism and his baseline. He has been pleasant and gotten along with other peers and staff consistently over the last 5 days. He was provided with heel boots for comfort which he appreciates. Hepatitis panel to assess for hepatitis prior to admission to a [facility], resulted as negative. Quantiferon Gold pending. In order to additionally help with decreasing sedation we moved daily haldol dosing to bedtime. At home it will be best to have two 5 mg tablets at bedtime, that way if he becomes agitated or upset earlier in the day he can have 5mg at that time with the remaining 5 mg to be given at bedtime. He is discharged home with his grandparents in stable condition, he was in a good mood and playing the piano and singing boisterously with his peers the hour prior to discharge. He had no feelings of self harm, desire to hurt others , no auditory or visual hallucinations, no anxiety, and no depression. Exam Vital Signs (Last) Date Time Temp Pulse Resp B/P Pulse Ox O2 Delivery O2 Flow Rate FiO2 07/13/16 09:30 36.1 89 17 114/68 Exam Discharge Mental Status Exam Appearance: Neat/well groomed Attitude: Pleasant, Cooperative Behavior: Distractible Affect: Restricted Mood: Euthymic Thought Process/Associations: Logical/Sequential, Goal Directed Speech Production: Paucity Speech Rate: Lags/Latency Speech Articulation: Other (mild dysarthria) Thought Content: Autistic Danger to Self/Suicidal Ideation: None Danger to Others: None Hallucinations: Auditory (Denies), Visual (Denies) Consciousness: Alert Orientation: Person Memory: Untestable Estimate Intellectual Function: Developmentally delayed Basis for IQ estimate: Awareness current events, Word use/vocabulary, Educational history Attention/Concentration & Cognition: Impaired Insight: Limited Judgement: Limited Test 07/03/16 21:35 07/03/16 21:50 07/11/16 11:10 White Blood Count 6.6th/mm3 (3.8-10.1) Red Blood Count 5.54mil/mm3 (4.40-5.80) Hemoglobin 16.9g/dL (13.8-17.2) Hematocrit 48.6% (41.0-50.0) Mean Corpuscular Volume 87.7fL (81-100) Mean Corpuscular Hemoglobin 30.5pg (27.0-35.0) Mean Corpuscular Hemoglobin Concent 34.8% (32.0-37.0) Red Cell Distribution Width 13.1% (12.3-15.4) Platelet Count 211bil/L (150-400) Neutrophils (%) (Auto) 74.3% (40-74) Lymphocytes (%) (Auto) 16.3% (14-46) Monocytes (%) (Auto) 7.2% (4-12) Eosinophils (%) (Auto) 0.8% (0-5) Basophils (%) (Auto) 0.3% (0-3) Thyroid Stimulating Hormone (TSH) 1.570uIU/mL (0.450-4.500) Hold Page Top Tube Received (Received) Alcohols < 10mg/dL (0-10) Hold Urine Received (Received) Sodium Level 140mEq/L (134-144) Potassium Level 4.2mEq/L (3.5-5.2) Chloride Level 100mEq/L (97-108) Carbon Dioxide Level 28mmol/L (18-29) Blood Urea Nitrogen 16mg/dL (6-20) Creatinine 0.82mg/dL (0.76-1.27) Estimat Glomerular Filtration Rate 129mL/min (>59) Glucose Level 123mg/dL (60-99) Calcium Level 9.5mg/dL (8.5-10.1) Total Bilirubin 0.2mg/dL (0.0-1.2) Aspartate Amino Transf (AST/SGOT) 36U/L (0-50) Alanine Aminotransferase (ALT/SGPT) 60U/L (0-44) Alkaline Phosphatase 109U/L (25-150) Total Protein 6.2g/dL (6.4-8.4) Albumin 3.9g/dL (3.4-5.0) Hepatitis A IgM Antibody Negative (Negative) Hepatitis B Surface Antigen Negative (Negative) Hepatitis B Core IgM Antibody Negative (Negative) Hepatitis C Antibody <0.1s/co ratio (0.0-0.9) Hepatitis C Comment Comment (.) Discharge Medications Discharge Medications Amantadine (Amantadine) 100 Mg Cap 100 MG PO DAILY Prescribed by: SIMÓN GILLIAM MD Amantadine (Amantadine) 100 Mg Cap 200 MG PO HS Prescribed by: SIMÓN GILLIAM MD Cholecalciferol (Vitamin D3) (Vitamin D3) 50,000 Unit Capsule 50,000 UNIT PO WEEKLY Prescribed by: SIMÓN GILLIAM MD Clonazepam (Clonazepam) 1 Mg Tablet 1 MG PO DAILY Prescribed by: SIMÓN GILLIAM MD Clonazepam (Clonazepam) 1 Mg Tablet 2 MG PO HS Prescribed by: SIMÓN GILLIAM MD Fluvoxamine Maleate ER (Fluvoxamine Maleate ER) 150 Mg Capsule 300 MG PO DAILY Prescribed by: SIMÓN GILLIAM MD Guanfacine (Guanfacine) 1 Mg Tablet 1 MG PO BID Prescribed by: SIMÓN GILLIAM MD Haloperidol (Haloperidol) 5 Mg Tablet 10 MG PO HS Prescribed by: SIMÓN GILLIAM MD Melatonin (Melatonin) 5 Mg Tablet 10 MG PO HS Prescribed by: SIMÓN GILLIAM MD Polyethylene Glycol 3350 (Miralax) 17 Gm Powd.pack 17 GM PO DAILY Prescribed by: SIMÓN GILLIAM MD As needed Ibuprofen (Ibuprofen) 800 Mg Tablet 800 MG PO TID PRN PRN For Pain Prescribed by: SIMÓN GILLIAM MD Trazodone (Trazodone) 100 Mg Tablet 100-200 MG PO HS PRN PRN Insomnia Prescribed by: SIMÓN GILLIAM MD Additional med instructions Recommend very slow taper of clonazepam by 0.5mg every 2-4 weeks to reduce the likelihood of behavioral manifestations. Followup Plan Disposition: The patient's guardian report that the patient has returned to a good baseline and is appropriate to return to the home, they agree to follow-up and there is no indication for further hospitalization or referral to [facility] at this time. The guardian verbally consented to provide the prescribed medications for patient. Patient on 14 day MRO, he has returned to baseline per family and clinically is safe to discharge home under the care of his guardians. Follow-up plan Counselor Kitty Keen on 07/17/16 @ 1:00pm [address] [place] [id number] Medication Managment KASIE Gonzalez on 07/25/16@ 1:20pm [facility] [address] [place] [id number] Discharge Diet: No restrictions Discharge Activity: No restrictions Patient Instructions Should you have any thoughts of harming yourself or others, please call the crisis line, your provider, 911, or go to the nearest Emergency Department. Do not change or discontinue your medications without discussing with your provider. You have been given a prescription for 30 days supply of your new medication Follow-up Provider: Corina Mccollum Follow-up with PCP in: 2 weeks Attending Statement The patient was seen and examined together with Dr. Preciado on 07/14/16 and I agree with the history, exam and plan as outlined in the note above. Radha Preciado DO July 14, 2016 16:06 Simón Gilliam MD July 14, 2016 23:10
--- NOTE | 2016-07-14 17:01 | NUR ---
Nursing Discharge Note: Patient cooperative with discharge process. Acknowledges understanding of d/c instructions and has a copy with them upon leaving unit at 1555. Belongings accounted for and with patient. Prescriptions faxed to patients pharmacy at [facility]. Hard copies with patient's grandparents. Patient denies harmful thoughts and hallucinations at this time.
== END 2016-07-14 15:55 | disposition home or self-care (01) | DRG 884 ==
LOC: EDBD 21:09 → SED 21:09 → MHC 07-05 14:43
PROVIDERS: ADMIT Psychiatry & Neurology Psychiatry; ATTEND Psychiatry & Neurology Psychiatry
DX: F84.0 Autistic disorder (principal); F43.0 Acute stress reaction; R45.6 Violent behavior; F79 Unspecified intellectual disabilities; F95.2 Tourette's disorder; F32.9 Major depressive disorder, single episode, unspecified; F80.9 Developmental disorder of speech and language, unspecified; F42.9 Obsessive-compulsive disorder, unspecified; F90.9 Attention-deficit hyperactivity disorder, unspecified type